=== PATIENT | male | born 1955 | race Caucasian/White ===

== ENCOUNTER → 2023-04-15 15:11 | Outpatient (BNVA) | payer MEDICARE, SELFPAY | PROVIDERS: Visit Provider Family Medicine | DX: E03.9 Hypothyroidism, unspecified (principal); I10 Essential (primary) hypertension; M54.42 Lumbago with sciatica, left side; M54.41 Lumbago with sciatica, right side; G89.29 Other chronic pain; E87.70 Fluid overload, unspecified; E78.2 Mixed hyperlipidemia; N52.8 Other male erectile dysfunction; K21.9 Gastro-esophageal reflux disease without esophagitis; M75.01 Adhesive capsulitis of right shoulder | CPT/HCPCS: 73030; 80053; 80061; 84439; 84443; 85025 ==

== ENCOUNTER 2023-08-26 10:50 | Outpatient (CLI) | payer MEDICARE, SELFPAY ==
--- NOTE | 2023-08-26 11:00 | MR_ITS ---
WS: [id number] MRI RIGHT SHOULDER HISTORY: shoulder pain COMPARISON: Radiographs 07/22/2023 TECHNIQUE: Multiplanar sequences of the shoulder joint are submitted. Moderate AC joint arthritis. Narrowing of the AC joint with osteophyte encroachment upon the myotendi nous portion of the supraspinatus. Small amount of fluid in the subacromial and subdeltoid bursa. No os acromion. Biceps tendon in normal position. Mild subacromial impingement. Moderate narrowing of the glenohumeral joint. Slightly high riding humeral head. Mild diffuse loss of cartilage is surrounding the humeral head and glenoid. No fractures and no marrow edema. There is very mild atrophy of the supraspinatus muscle. Focal insertion site tear supraspinatus tendo n, the anterior most aspect of the tendon measures 9 mm. No retraction of the tendon. Moderate narrow ing of the coracohumeral interval by osteophyte disease from the coracoid process. No additional tend on tears. Mild degenerative changes involving the labrum. The labrum is poorly visualized due to the amount of motion. Cannot confirm a labral tear. MR/MR shoulder RT wo con* [id number] IMPRESSION: 1. Moderate AC joint arthritis with osteophyte encroachment upon the myotendin ous region of the supraspinatus. 2. Insertion site tear anterior most supraspinatus tendon. 3. Very mild supraspinatus muscle atrophy. 4. Moderate narrowing coracohumeral interval. 5. Mild subacromial impingement.
== END 2023-08-26 10:51 | disposition home or self-care (01) ==
PROVIDERS: PCP Family Medicine; Visit Provider Specialist
DX: M75.01 Adhesive capsulitis of right shoulder (principal)
CPT/HCPCS: 73221

== ENCOUNTER → 2023-09-21 15:25 | Outpatient (BNVA) | payer MEDICARE, SELFPAY | PROVIDERS: PCP Family Medicine; Visit Provider Specialist | DX: Z09 Encounter for follow-up examination after completed treatment for conditions other than malignant neoplasm (principal); M75.01 Adhesive capsulitis of right shoulder | CPT/HCPCS: 20610; 99204; J1100; J2795; J3301 ==

== ENCOUNTER → 2023-10-28 09:53 | Outpatient (BNVA) | payer MEDICARE, SELFPAY | PROVIDERS: PCP Family Medicine; Referring Provider Family Medicine; Visit Provider Nurse Practitioner Family | DX: D48.5 Neoplasm of uncertain behavior of skin (principal); L82.1 Other seborrheic keratosis; L57.0 Actinic keratosis; L57.8 Other skin changes due to chronic exposure to nonionizing radiation; D22.5 Melanocytic nevi of trunk | CPT/HCPCS: 11104; 17000; 99203 ==

== ENCOUNTER → 2023-11-09 14:26 | Outpatient (BNVA) | payer MEDICARE, SELFPAY | PROVIDERS: PCP Family Medicine; Visit Provider Nurse Practitioner Family | DX: L82.1 Other seborrheic keratosis (principal); L57.8 Other skin changes due to chronic exposure to nonionizing radiation; D22.5 Melanocytic nevi of trunk; L44.8 Other specified papulosquamous disorders; L57.0 Actinic keratosis | CPT/HCPCS: 99213 ==

== ENCOUNTER 2023-12-07 12:58 | Emergency (ER) | payer MEDICARE, SELFPAY ==
[2023-12-07 13:06] VITALS: BP 152/78; PULSE 76; RESP 18; TEMP 36.4; O2SAT 96; BMI 27.8
[2023-12-07 13:45] LABS: Basophils # 0.1 10^3/uL (0.0-0.1); Basophils % 1.1 %; Eosinophils # 0.1 10^3/uL (0.0-0.8); Hematocrit 48.4 % (37-53); Lymphocytes # 1.8 10^3/uL (0.8-4.8); Lymphocytes % 28.5 %; Mean Corpuscular HGB Conc 33.7 g/dL (30-55); Mean Corpuscular Hemoglobin 31.8 pg (27-33); Mean Corpuscular Volume 94.5 fl (82-101); Mean Platelet Volume 9.8 fL (7.4-10.4); Monocytes # 0.5 10^3/uL (0.2-0.9); Monocytes % 8.4 %; Neutrophils # 3.86 10^3/uL (1.8-7.7); Neutrophils % 59.8 %; Nucleated Red Blood Cells % 0 %; Platelet Count 246 10^3/cmm (157-399); Red Blood Count 5.12 10^6/uL (3.85-5.65); Red Cell Distribution Width 12.6 % (12.1-15.1); White Blood Count 6.45 10^3/uL (3.29-11.43)
[2023-12-07 14:02] LABS: Lactic Sepsis W/Reflex 1.3 mmol/L (0.5-2.2)
[2023-12-07 14:03] LABS: Alanine Aminotransferase 16 U/L (0-41); Albumin Level 4.4 g/dL (3.5-5.2); Alkaline Phosphatase 81 U/L (40-130); Aspartate Amino Transferase 15 U/L (0-40); Blood Urea Nitrogen 14 mg/dL (8-23); Calcium 8.9 mg/dL (8.5-10.5); Carbon Dioxide 24 mmol/L (22-29); Chloride 105 mmol/L (98-107); Globulin 2.7 g/dL (1.3-4.6); Glucose 95 mg/dL (65-115); Lipase 15 U/L (13-60); Osmolality Calculated 290 mOsm/kg (285-295); Sodium 140 mmol/L (136-145); Total Bilirubin 0.8 mg/dL (0.15-1.2); Total Protein 7.1 g/dL (6.6-8.7)
--- NOTE | 2023-12-07 15:53 | XRR_ITS ---
PROCEDURE INFORMATION: Exam: XR Abdomen Exam date and time: 12/07/2023 4:03 PM Age: 68 years old Clinical indication: Constipation; Prior surgery; Surgery date: 6+ months; Surgery type: Partial RT colectomy; Additional info: Constipation, HX of partial R colectomy TECHNIQUE: Imaging protocol: Radiologic exam of the abdomen. Views: 2 Views. Upright and supine views. COMPARISON: CR XR lumbar spine 2-3V* [id number] 06/22/2023 2:29 PM FINDINGS: Gastrointestinal tract: Nonspecific bowel gas pattern, without significant bowel dilatation or distension. Predominance of gas and stool within the colon, with moderate stool volume. Intraperitoneal space: No indication of free air. Vasculature: Suggestion of several pelvic phleboliths. Bones/joints: Postsurgical hardware L4-L5 level of prior fusion. Other findings: Psoas margins appear distinct. XR/XR abdomen min 2V [id number] IMPRESSION: Nonspecific nonobstructive bowel gas pattern. Moderate stool volume in the colon.
--- NOTE | 2023-12-07 15:53 | W.ED.ABDPA2 ---
HPI - Abdominal Pain General: Chief Complaint: Abdominal Pain Stated Complaint: no bm movement, sick, n,v Time Seen by Provider: 12/07/23 15:34 Source: patient and family Mode of arrival: ambulatory Limitations: no limitations History of Present Illness: Patient is a 68-year-old male who presents to ED today along with his for evaluation of constipation over the past few weeks. Patient states he chronically takes opiates for chronic lower back pain. He states normally he can alleviate constipation with nfxf-psw-[id number] laxatives and stool softeners. He states he has been taking these at home without much relief. He states he will have watery bowel movements but at the end of it will have stool that is gooey . He states he is not really having any pain. Possibly some intermittent cramping. He does have a known large abdominal hernia that he has had for several years that does not cause him any problems. He has not had any vomiting over the course of the last few weeks apart from one time after taking a probiotic. Patient states he is up-to-date on colonoscopy. MD elicited complaint: abdominal pain Onset (ago): day(s) Location: None Radiation: none Migration to: no migration Exacerbating factors: nothing Relieving factors: nothing Associated Symptoms: Reports constipation; Denies chills, GI cramping, dysuria, fever(s), hematochezia, hematemesis, melena and vomiting (one time after taking probiotics) Related Data Previous Rx's Medication Instructions Recorded naloxone 4 mg/actuation nasal 4 mg intranasal Q3M PRN opioid 04/15/23 spray (Narcan) overdose #2 ea oxycodone 10 mg tablet 10 mg PO Q4H PRN lower back pain 06/12/23 30 days #180 tabs diazepam 5 mg tablet 5 mg PO BID PRN anxiety #60 tabs 09/15/23 duloxetine 30 mg capsule,delayed 30 mg PO BID #90 caps 09/15/23 release gabapentin 300 mg capsule 300 mg PO DAILY #90 caps 09/15/23 lisinopril 40 mg tablet 40 mg PO DAILY #90 tabs 09/15/23 omeprazole 20 mg capsule,delayed 20 mg PO DAILY #90 caps 09/15/23 release sildenafil 100 mg tablet 100 mg PO DAILY PRN sexual 09/15/23 activity #30 tabs atorvastatin 40 mg tablet 40 mg PO DAILY #90 tabs 09/16/23 furosemide 40 mg tablet 40 mg PO QAM #60 tabs 09/16/23 levothyroxine 25 mcg capsule 25 mcg PO DAILY #90 caps 09/16/23 potassium chloride 20 mEq 20 meq PO DAILY #30 tabs 11/19/23 tablet,extended release Allergies Allergy/AdvReac Type Severity Reaction Status Date / Time naproxen Allergy Mild Swell Verified 12/07/23 13:11 Review of Systems Const: Denies: fever(s), chills, body aches, fatigue or malaise Card: Denies: chest pain Resp: Denies: dyspnea GI: Reports: abdominal pain and constipation; Denies: vomiting (one time after taking probiotics), hematemesis, GI cramping, rectal pain, hematochezia or melena : Denies: flank pain or dysuria Musc: Denies: neck pain, back pain, extremity pain, joint pain or joint swelling Skin/Breast: Denies: rash Neuro: Denies: headache(s) or dizziness PFSH ED PFSH: Medical History GERD (gastroesophageal reflux disease) Anxiety Hyperlipidemia Erectile dysfunction Chronic back pain Hypothyroidism Arthritis Fatty liver Hypertension Surgical History History of back surgery Family History Father Cancer Lung Mother Alzheimer's dementia Social History Smoking and tobacco/nicotine status: former use of tobacco/nicotine Quit status (tobacco/nicotine): has tried quititng Alcohol intake: current Alcohol intake frequency: few times a month Alcohol type: hard liquor Substance/Drug Use: never Adopted: No Caregiver/support person: No Lives independently: Yes Household members: spouse service: No Current occupational status: retired and disabled Current occupational exposures/hazards: Yes Current gender identity: Male Physical Exam Const: COMMON NORMALS: no acute distress, average body habitus, patient oriented x3, no limitations, healthy appearing, alert and well nourished GENERAL APPEARANCE: cooperative ORIENTATION/CONSCIOUSNESS: Yes awake, Yes oriented to person, Yes oriented to place and Yes oriented to time Eye: COMMON NORMALS: no scleral icterus Resp: COMMON NORMALS: normal respiratory effort and clear to auscultation bilaterally AUSCULTATION: clear to auscultation bilaterally Cardio: COMMON NORMALS: regular rate and regular rhythm RATE: regular rate RHYTHM: regular rhythm GI: COMMON NORMALS: Normal to inspection, nondistended, normoactive bowel sounds present, Soft to palpation, non-tender, No hepatosplenomegaly present and no masses PALPATION: Yes Soft to palpation and Yes No hepatosplenomegaly present : COMMON NORMALS: Yes no CVA tenderness BLADDER/KIDNEY EXAM: Yes no CVA tenderness Back/Pelvis: COMMON NORMALS: no CVA tenderness Extremity: GENERAL: Yes normal exam except as noted Neuro: COMMON NORMALS: patient oriented x3 SENSORIUM/ORIENTATION: Yes alert, Yes oriented to person, Yes oriented to place and Yes oriented to time Course Vital Signs: Vital signs: Vital Signs Temperature 97.6 F 12/07/23 13:06 Pulse Rate 76 12/07/23 13:06 Respiratory Rate 18 12/07/23 13:06 Blood Pressure 152/78 12/07/23 13:06 Pulse Oximetry 96 12/07/23 13:06 Oxygen Delivery Me thod Room Air 12/07/23 13:06 MDM - Abdominal Pain Medical Decision Making Patient clinically appears in no acute distress. His vital signs are stable. Blood work is unremarkable. He has no abdominal pain. This abdominal XR showing nonobstructive bowel gas pattern. He does have moderate stool volume. Patient was given a mixture of medications to take when he gets home to help with constipation. We discussed multiple zeuc-vwz-jlsfjqw options for constipation relief including suppositories/enemas. He can follow-up with primary care in 1 to 2 weeks if symptoms do not seem to improve. Return to ED precautions given. Medical Records I reviewed the patient's medical records. Lab Data I reviewed the patient's lab results. 12/07/23 13:30 12/07/23 13:30 Labs/Radiology: Radiology Impressions Abdomen X-Ray 12/07/23 15:53 IMPRESSION: Nonspecific nonobstructive bowel gas pattern. Moderate stool volume in the colon. Laboratory Results WBC 6.45 10^3/uL (3.29-11.43) 12/07/23 13:30 RBC 5.12 10^6/uL (3.85-5.65) 12/07/23 13:30 Hgb 16.30 g/dL (11.27-16.99) 12/07/23 13:30 Hct 48.4 % (37-53) 12/07/23 13:30 MCV 94.5 fl (82-101) 12/07/23 13:30 MCH 31.8 pg (27-33) 12/07/23 13:30 MCHC 33.7 g/dL (30-55) 12/07/23 13:30 RDW 12.6 % (12.1-15.1) 12/07/23 13:30 Plt Count 246 10^3/cmm (157-399) 12/07/23 13:30 MPV 9.8 fL (7.4-10.4) 12/07/23 13:30 Neut % (Auto) 59.8 % 12/07/23 13:30 Lymph % (Auto) 28.5 % 12/07/23 13:30 [place] % (Auto) 8.4 % 12/07/23 13:30 Eos % (Auto) 2.0 % 12/07/23 13:30 Baso % (Auto) 1.1 % 12/07/23 13:30 Neut # (Auto) 3.86 10^3/uL (1.8-7.7) 12/07/23 13:30 Lymph # (Auto) 1.8 10^3/uL (0.8-4.8) 12/07/23 13:30 [place] # (Auto) 0.5 10^3/uL (0.2-0.9) 12/07/23 13:30 Eos # (Auto) 0.1 10^3/uL (0.0-0.8) 12/07/23 13:30 Baso # (Auto) 0.1 10^3/uL (0.0-0.1) 12/07/23 13:30 Nucleated RBC % (auto) 0 % 12/07/23 13:30 Nucleated RBCs # 0.0 /100WBC 12/07/23 13:30 Sodium 140 mmol/L (136-145) 12/07/23 13:30 Potassium 4.0 mmol/L (3.5-5.1) 12/07/23 13:30 Chloride 105 mmol/L (98-107) 12/07/23 13:30 Carbon Dioxide 24 mmol/L (22-29) 12/07/23 13:30 Anion Gap 15.0 (5-19) 12/07/23 13:30 BUN 14 mg/dL (8-23) 12/07/23 13:30 Creatinine 0.6 mg/dL (0.7-1.2) L 12/07/23 13:30 GFR Calculation 134.0 mL/min (90-130) H 12/07/23 13:30 Glucose 95 mg/dL (65-115) 12/07/23 13:30 Calculated Osmolality 290 mOsm/kg (285-295) 12/07/23 13:30 Lactic Acid 1.3 mmol/L (0.5-2.2) 12/07/23 13:30 Calcium 8.9 mg/dL (8.5-10.5) 12/07/23 13:30 Total Bilirubin 0.8 mg/dL (0.15-1.2) 12/07/23 13:30 AST 15 U/L (0-40) 12/07/23 13:30 ALT 16 U/L (0-41) 12/07/23 13:30 Alkaline Phosphatase 81 U/L (40-130) 12/07/23 13:30 Total Protein 7.1 g/dL (6.6-8.7) 12/07/23 13:30 Albumin 4.4 g/dL (3.5-5.2) 12/07/23 13:30 Globulin 2.7 g/dL (1.3-4.6) 12/07/23 13:30 Lipase 15 U/L (13-60) 12/07/23 13:30 All radiology interpretation(s) finalized by discharge Discharge Plan Discharge Patient Disposition: Home Clinical Impression: Constipation Qualifiers: Constipation type: unspecified constipation type Qualified Code(s): K59.00 - Constipation, unspecified Condition: Stable Prescriptions: No Action diazepam 5 mg tablet 5 mg PO BID PRN (Reason: anxiety) Qty: 60 0RF lisinopril 40 mg tablet 40 mg PO DAILY Qty: 90 1RF omeprazole 20 mg capsule,delayed release(DR/EC) 20 mg PO DAILY Qty: 90 1RF sildenafil 100 mg tablet 100 mg PO DAILY PRN (Reason: sexual activity) Qty: 30 1RF Rx Instructions: administer 30 minutes to 4 hours before activity duloxetine 30 mg capsule,delayed release(DR/EC) 30 mg PO BID Qty: 90 1RF gabapentin 300 mg capsule 300 mg PO DAILY Qty: 90 1RF naloxone [Narcan] 4 mg/actuation spray,non-aerosol 4 mg intranasal Q3M PRN (Reason: opioid overdose) Qty: 2 0RF Rx Instructions: spray 1 dose into ONE nostril; alternate nostrils w each dose until help arrives oxycodone 10 mg tablet 10 mg PO Q4H PRN (Reason: lower back pain) 30 Days Qty: 180 0RF furosemide 40 mg tablet 40 mg PO QAM Qty: 60 1RF atorvastatin 40 mg tablet 40 mg PO DAILY Qty: 90 1RF levothyroxine 25 mcg capsule 25 mcg PO DAILY Qty: 90 1RF potassium chloride 20 mEq tablet extended release 20 meq PO DAILY Qty: 30 0RF Discharge Orders: Discharge ED (Routine); Ordered 12/07/23 Ordered By: Dawna Bird Referrals: Hiren Holloway MD [Primary Care Provider] - Patient Instructions: Constipation (DC), Fleet Enema (ED) Activity Restrictions/Additional Instructions: As we discussed, you have been given a mixture to go home with that you may use to help alleviate constipation. You will require additional medications to use over the next week or so. We discussed these iryz-vdh-xzxlbea options such as mag citrate, milk of magnesia, colace/docusate sodium, Senokot, and MiraLAX. You may also require the administration of an enema or suppository as well. These are available [id number]. You may follow-up with your primary care provider in 1 to 2 weeks if symptoms do not seem to improve. Return to the emergency department for onset of severe abdominal pain, fevers, repetitive episodes of vomiting, generally feeling worse or unwell, or any other concerns you may have. Coding Level of Care Code ED [employer] Team Member for Josette Patel
[2023-12-07] MEDS: magnesium hydroxide 30 mL UDC PO (17:04)
[2023-12-07] MEDS: lactulose oral liq 20 gm/30 mL UDC 30 GM PO (17:04)
[2023-12-07] MEDS: mineral oil 30 mL UDC PO (17:04)
[2023-12-07 17:12] VITALS: BP 148/82; PULSE 74; RESP 16; O2SAT 97
== END 2023-12-07 17:07 | disposition home or self-care (01) ==
PROVIDERS: Emergency Provider Physician Assistant; PCP Family Medicine
DX: K59.00 Constipation, unspecified (principal); Z87.891 Personal history of nicotine dependence; E78.5 Hyperlipidemia, unspecified; I10 Essential (primary) hypertension
CPT/HCPCS: 36415; 74019; 80053; 83605; 83690; 85025; 99284

== ENCOUNTER 2024-01-29 05:26 | Inpatient (IN) | payer MEDICARE, SELFPAY ==
[2024-01-29] VITALS (17 sets, daily range): BP systolic 108–188; BP diastolic 70–104; PULSE 47–98; RESP 13–25; TEMP 35–38.1; O2SAT 86–99
--- NOTE | 2024-01-29 05:31 | ECG_ITS ---
[facility] Test Date: 2024-01-29 Pat Name: Garry Corley Department: Room: Gender: Male [employer] Helper: : 1955 Requested By: Radha Shirley Order Number: [id number] Ramos MD: Espinoza Pedroza M.D. Measurements Intervals [place] Rate: 54 P: 59 WV: 183 QRS: 38 QRSD: 94 T: 62 QT: 410 QTc: 391 Interpretive Statements SINUS BRADYCARDIA No previous ECG available for comparison Electronically Signed On 01-31-2024 18:54:28 DISPENSARY CLERK by Espinoza Pedroza M.D. [email or web address]
--- NOTE | 2024-01-29 05:31 | W.ED.CHESTPA ---
Documented by User: Radha Rahman MD 01/29/24 05:34 HPI - Chest Pain General: Chief Complaint: Chest Pain Stated Complaint: chest pain Time Seen by Provider: 01/29/24 05:30 History of Present Illness: 68-year-old man with history of hypertension and tobacco dependence who presents the emergency room with chest pain. He had been having indigestion symptoms most of the day yesterday. He had taken a whole bunch of Pepto-Bismol. He called ambulance because of [facility] and they initially came out and said that whenever he got up to go to the ambulance that had gone away so he stayed. But then it came back and now has a pressure in his center of his chest. He is had some nausea. No vomiting. No cough. No shortness of breath. No abdominal pain. No history of any cardiac issues in the past. Related Data Previous Rx's Medication Instructions Recorded naloxone 4 mg/actuation nasal 4 mg intranasal Q3M PRN opioid 04/15/23 spray (Narcan) overdose #2 ea oxycodone 10 mg tablet 10 mg PO Q4H PRN lower back pain 06/12/23 30 days #180 tabs potassium chloride 20 mEq 20 meq PO DAILY #30 tabs 11/19/23 tablet,extended release atorvastatin 40 mg tablet 40 mg PO DAILY #90 tabs 01/24/24 diazepam 5 mg tablet 5 mg PO BID PRN anxiety #60 tabs 01/24/24 levothyroxine 25 mcg capsule 25 mcg PO DAILY #90 caps 01/24/24 lisinopril 40 mg tablet 40 mg PO DAILY #90 tabs 01/24/24 omeprazole 20 mg capsule,delayed 20 mg PO DAILY #90 caps 01/24/24 release sildenafil 100 mg tablet 100 mg PO DAILY PRN sexual 01/24/24 activity #30 tabs Allergies Allergy/AdvReac Type Severity Reaction Status Date / Time naproxen Allergy Mild Swell Verified 12/15/23 11:14 Review of Systems Narrative: Constitutional symptoms: Negative except as documented in HPI. Skin symptoms: Negative except as documented in HPI. Eye symptoms: Negative except as documented in HPI. ENMT symptoms: Negative except as documented in HPI. Respiratory symptoms: Negative except as documented in HPI. Cardiovascular symptoms: Negative except as documented in HPI. Gastrointestinal symptoms: Negative except as documented in HPI. Genitourinary symptoms: Negative except as documented in HPI. Musculoskeletal symptoms: Negative except as documented in HPI. Neurologic symptoms: Negative except as documented in HPI. Psychiatric symptoms: Negative except as documented in HPI. Endocrine symptoms: Negative except as documented in HPI. PFSH ED PFSH: Medical History GERD (gastroesophageal reflux disease) Anxiety Hyperlipidemia Erectile dysfunction Chronic back pain Hypothyroidism Arthritis Fatty liver Hypertension Surgical History History of back surgery Family History Father Cancer Lung Mother Alzheimer's dementia Social History Smoking and tobacco/nicotine status: former use of tobacco/nicotine Quit status (tobacco/nicotine): has tried quititng Alcohol intake: current Alcohol intake frequency: few times a month Alcohol type: hard liquor Substance/Drug Use: never Adopted: No Caregiver/support person: No Lives independently: Yes Household members: spouse service: No Current occupational status: retired and disabled Current occupational exposures/hazards: Yes Current gender identity: Male Physical Exam Narrative: EXAM NARRATIVE: General: Alert, no acute distress. Skin: Warm, dry. Head: Normocephalic, atraumatic. Neck: Supple, trachea midline. Eye: Extraocular movements are intact. Ears, nose, mouth and throat: mucosa moist. Cardiovascular: Regular, Normal peripheral perfusion. Respiratory: Lungs are clear to auscultation, respirations are non-labored, breath sounds are equal, Symmetrical chest wall expansion. Gastrointestinal: Soft, Nontender, Non distended Musculoskeletal: Normal ROM, no deformity. Neurological: Alert and oriented, No focal neurological deficit observed. Psychiatric: Cooperative, appropriate mood & affect. Course Vital Signs: Vital signs: Vital Signs Temperature 97.5 F L 01/29/24 12:13 Pulse Rate 61 01/29/24 12:27 Respiratory Rate 19 H 01/29/24 12:13 Blood Pressure 142/70 01/29/24 12:13 Pulse Oximetry 92 01/29/24 14:46 Oxygen Delivery Me thod Room Air 01/29/24 14:46 Oxygen Flow Rate 2 01/29/24 12:27 MDM - Chest Pain Medical Decision Making EKG: Time 5:31 AM. Rate 54. Sinus bradycardia, No ST-T changes, no ectopy, normal IN & QRS intervals, This was reviewed and interpreted by myself the ER physician at 5:33 AM. Patient care transitioned to Dr. Bauer at shift change. Lab Data 01/29/24 05:52 01/29/24 05:52 Radiology Impressions Chest X-Ray 01/29/24 06:03 IMPRESSION: No acute findings. Chest CTA 01/29/24 06:34 IMPRESSION: 1. No acute findings. 2. No dissection or aneurysm. Abdomen/Pelvis CT 01/29/24 08:34 IMPRESSION: 1. Cholelithiasis with a slightly hydropic gallbladder. There is no adjacent inflammation or wall thickening. Normal common bile duct. 2. No renal obstruction. Mild bilateral perinephric stranding may be chronic. 3. Distal colonic diverticulosis without acute diverticulitis. 4. Atherosclerosis aorta. 5. Normal appendix. Laboratory Results WBC 8.62 10^3/uL (3.29-11.43) 01/29/24 05:52 RBC 4.74 10^6/uL (3.85-5.65) 01/29/24 05:52 Hgb 15.00 g/dL (11.27-16.99) 01/29/24 05:52 Hct 45.1 % (37-53) 01/29/24 05:52 MCV 95.1 fl (82-101) 01/29/24 05:52 MCH 31.6 pg (27-33) 01/29/24 05:52 MCHC 33.3 g/dL (30-55) 01/29/24 05:52 RDW 12.5 % (12.1-15.1) 01/29/24 05:52 Plt Count 275 10^3/cmm (157-399) 01/29/24 05:52 MPV 9.6 fL (7.4-10.4) 01/29/24 05:52 Neut % (Auto) 62.8 % 01/29/24 05:52 Lymph % (Auto) 23.5 % 01/29/24 05:52 [place] % (Auto) 8.8 % 01/29/24 05:52 Eos % (Auto) 3.4 % 01/29/24 05:52 Baso % (Auto) 1.3 % 01/29/24 05:52 Neut # (Auto) 5.41 10^3/uL (1.8-7.7) 01/29/24 05:52 Lymph # (Auto) 2.0 10^3/uL (0.8-4.8) 01/29/24 05:52 [place] # (Auto) 0.8 10^3/uL (0.2-0.9) 01/29/24 05:52 Eos # (Auto) 0.3 10^3/uL (0.0-0.8) 01/29/24 05:52 Baso # (Auto) 0.1 10^3/uL (0.0-0.1) 01/29/24 05:52 Nucleated RBC % (auto) 0 % 01/29/24 05:52 Nucleated RBCs # 0.0 /100WBC 01/29/24 05:52 Sodium 142 mmol/L (136-145) 01/29/24 05:52 Potassium 4.0 mmol/L (3.5-5.1) 01/29/24 05:52 Chloride 106 mmol/L (98-107) 01/29/24 05:52 Carbon Dioxide 26 mmol/L (22-29) 01/29/24 05:52 Anion Gap 14.0 (5-19) 01/29/24 05:52 BUN 14 mg/dL (8-23) 01/29/24 05:52 Creatinine 0.7 mg/dL (0.7-1.2) 01/29/24 05:52 GFR Calculation 112.1 mL/min (90-130) 01/29/24 05:52 Glucose 112 mg/dL (65-115) 01/29/24 05:52 Calculated Osmolality 295 mOsm/kg (285-295) 01/29/24 05:52 Lactic Acid 2.5 mmol/L (0.5-2.2) H 01/29/24 05:52 Lactic Acid (Sepsis) 1.6 mmol/L (0.5-2.2) 01/29/24 09:15 Calcium 8.8 mg/dL (8.5-10.5) 01/29/24 05:52 Total Bilirubin 0.3 mg/dL (0.15-1.2) 01/29/24 05:52 AST 15 U/L (0-40) 01/29/24 05:52 ALT 21 U/L (0-41) 01/29/24 05:52 Alkaline Phosphatase 70 U/L (40-130) 01/29/24 05:52 Troponin T Baseline 9 ng/L (0-15) 01/29/24 05:52 Troponin T 120 Minute 6.00 ng/L (0-15) 01/29/24 08:22 Delta Troponin T -3.00 ABS# (0-10) L 01/29/24 08:22 Total Protein 5.7 g/dL (6.6-8.7) L 01/29/24 05:52 Albumin 4.0 g/dL (3.5-5.2) 01/29/24 05:52 Globulin 1.7 g/dL (1.3-4.6) 01/29/24 05:52 Lipase 16 U/L (13-60) 01/29/24 05:52 Urine Color Dark yellow (Yellow) A 01/29/24 06:19 Urine Appearance Clear (CLEAR) 01/29/24 06:19 Urine pH 5.5 (5-7) 01/29/24 06:19 Ur Specific [place] 1.035 (1.005-1.030) H 01/29/24 06:19 Urine Protein Trace (Negative) A 01/29/24 06:19 Urine Glucose (UA) Negative (Normal) 01/29/24 06:19 Urine Ketones Negative (Negative) 01/29/24 06:19 Urine Blood Negative (Negative) 01/29/24 06:19 Urine Nitrate Negative (Negative) 01/29/24 06:19 Urine Bilirubin Negative (Negative) 01/29/24 06:19 Urine Urobilinogen 1.0 mg/dL (Negative) 01/29/24 06:19 Ur Leukocyte Esterase Negative (Negative) 01/29/24 06:19 Urine RBC 3-5 /hpf (0-2) 01/29/24 06:19 Urine WBC 0-5 /hpf (0-5) 01/29/24 06:19 Ur Squamous Epith Cells 0-5 /hpf (0-5) 01/29/24 06:19 Amorphous Sediment Not Reportable 01/29/24 06:19 Urine Bacteria None seen /hpf (NONE) 01/29/24 06:19 Hyaline Casts 5.36 /lpf 01/29/24 06:19 Blood Type A Positive 01/29/24 06:52 Rho(D) Type Rh positive 01/29/24 06:52 Antibody Screen Positive 01/29/24 06:52 Antibody Identification Anti-K 01/29/24 06:52 Antigen Identification K Antigen - NEGATIVE 01/29/24 06:52 Crossmatch See Detail 01/29/24 06:52 Discharge Plan Discharge Patient Disposition: Placed in Observation Admit Provider: Maribell Osborn Clinical Impression: Atypical chest pain, Accelerated hypertension Sign Out Sign Out Data: Patient Sign Out occurred on 01/29/24 at 05:48. Patient's care was discussed, and care was transferred from Radha Rahman MD to Damon Bauer DO. Coding Level of Care Code ED Photoengraving Proofer for Chg Fwd Documented by User: Damon Bauer DO 01/29/24 15:14 HPI - Chest Pain General: Chief Complaint: Chest Pain Stated Complaint: chest pain Time Seen by Provider: 01/29/24 05:30 Related Data Previous Rx's Medication Instructions Recorded naloxone 4 mg/actuation nasal 4 mg intranasal Q3M PRN opioid 04/15/23 spray (Narcan) overdose #2 ea oxycodone 10 mg tablet 10 mg PO Q4H PRN lower back pain 06/12/23 30 days #180 tabs potassium chloride 20 mEq 20 meq PO DAILY #30 tabs 11/19/23 tablet,extended release atorvastatin 40 mg tablet 40 mg PO DAILY #90 tabs 01/24/24 diazepam 5 mg tablet 5 mg PO BID PRN anxiety #60 tabs 01/24/24 levothyroxine 25 mcg capsule 25 mcg PO DAILY #90 caps 01/24/24 lisinopril 40 mg tablet 40 mg PO DAILY #90 tabs 01/24/24 omeprazole 20 mg capsule,delayed 20 mg PO DAILY #90 caps 01/24/24 release sildenafil 100 mg tablet 100 mg PO DAILY PRN sexual 01/24/24 activity #30 tabs Allergies Allergy/AdvReac Type Severity Reaction Status Date / Time naproxen Allergy Mild Swell Verified 12/15/23 11:14 [facility] ED PFSH: Medical History GERD (gastroesophageal reflux disease) Anxiety Hyperlipidemia Erectile dysfunction Chronic back pain Hypothyroidism Arthritis Fatty liver Hypertension Surgical History History of back surgery Family History Father Cancer Lung Mother Alzheimer's dementia Social History Smoking and tobacco/nicotine status: former use of tobacco/nicotine Quit status (tobacco/nicotine): has tried quititng Alcohol intake: current Alcohol intake frequency: few times a month Alcohol type: hard liquor Substance/Drug Use: never Adopted: No Caregiver/support person: No Lives independently: Yes Household members: spouse service: No Current occupational status: retired and disabled Current occupational exposures/hazards: Yes Current gender identity: Male Course Vital Signs: Vital signs: Vital Signs Temperature 97.5 F L 01/29/24 12:13 Pulse Rate 61 01/29/24 12:27 Respiratory Rate 19 H 01/29/24 12:13 Blood Pressure 142/70 01/29/24 12:13 Pulse Oximetry 92 01/29/24 14:46 Oxygen Delivery Me thod Room Air 01/29/24 14:46 Oxygen Flow Rate 2 01/29/24 12:27 MDM - Chest Pain Medical Decision Making EKG: Time 5:31 AM. Rate 54. Sinus bradycardia, No ST-T changes, no ectopy, normal IN & QRS intervals, This was reviewed and interpreted by myself the ER physician at 5:33 AM. Patient care transitioned to Dr. Bauer at shift change. Blood pressure remains elevated patient continues to have chest pain. Patient was given morphine all started on nitroglycerin. Cardiac enzymes negative EKG does not show any acute changes but he continues to have chest pain. The right side of his mediastinum appears slightly widened CTA of the chest did not show PE or thoracic aneurysm. Will admit to complete to rule out for acute coronary syndrome additionally we had given him vasa reticulocyte he is bradycardic while he was here at times going down into the 40s did not want to give him any labetalol given 5 of hydralazine as well as vasa reticulocyte he did not have much response to this he was then started on nicardipine. Discussed with hospitalist will admit orders written Lab Data 01/29/24 05:52 01/29/24 05:52 Radiology Impressions Chest X-Ray 01/29/24 06:03 IMPRESSION: No acute findings. Chest CTA 01/29/24 06:34 IMPRESSION: 1. No acute findings. 2. No dissection or aneurysm. Abdomen/Pelvis CT 01/29/24 08:34 IMPRESSION: 1. Cholelithiasis with a slightly hydropic gallbladder. There is no adjacent inflammation or wall thickening. Normal common bile duct. 2. No renal obstruction. Mild bilateral perinephric stranding may be chronic. 3. Distal colonic diverticulosis without acute diverticulitis. 4. Atherosclerosis aorta. 5. Normal appendix. Laboratory Results WBC 8.62 10^3/uL (3.29-11.43) 01/29/24 05:52 RBC 4.74 10^6/uL (3.85-5.65) 01/29/24 05:52 Hgb 15.00 g/dL (11.27-16.99) 01/29/24 05:52 Hct 45.1 % (37-53) 01/29/24 05:52 MCV 95.1 fl (82-101) 01/29/24 05:52 MCH 31.6 pg (27-33) 01/29/24 05:52 MCHC 33.3 g/dL (30-55) 01/29/24 05:52 RDW 12.5 % (12.1-15.1) 01/29/24 05:52 Plt Count 275 10^3/cmm (157-399) 01/29/24 05:52 MPV 9.6 fL (7.4-10.4) 01/29/24 05:52 Neut % (Auto) 62.8 % 01/29/24 05:52 Lymph % (Auto) 23.5 % 01/29/24 05:52 [place] % (Auto) 8.8 % 01/29/24 05:52 Eos % (Auto) 3.4 % 01/29/24 05:52 Baso % (Auto) 1.3 % 01/29/24 05:52 Neut # (Auto) 5.41 10^3/uL (1.8-7.7) 01/29/24 05:52 Lymph # (Auto) 2.0 10^3/uL (0.8-4.8) 01/29/24 05:52 [place] # (Auto) 0.8 10^3/uL (0.2-0.9) 01/29/24 05:52 Eos # (Auto) 0.3 10^3/uL (0.0-0.8) 01/29/24 05:52 Baso # (Auto) 0.1 10^3/uL (0.0-0.1) 01/29/24 05:52 Nucleated RBC % (auto) 0 % 01/29/24 05:52 Nucleated RBCs # 0.0 /100WBC 01/29/24 05:52 Sodium 142 mmol/L (136-145) 01/29/24 05:52 Potassium 4.0 mmol/L (3.5-5.1) 01/29/24 05:52 Chloride 106 mmol/L (98-107) 01/29/24 05:52 Carbon Dioxide 26 mmol/L (22-29) 01/29/24 05:52 Anion Gap 14.0 (5-19) 01/29/24 05:52 BUN 14 mg/dL (8-23) 01/29/24 05:52 Creatinine 0.7 mg/dL (0.7-1.2) 01/29/24 05:52 GFR Calculation 112.1 mL/min (90-130) 01/29/24 05:52 Glucose 112 mg/dL (65-115) 01/29/24 05:52 Calculated Osmolality 295 mOsm/kg (285-295) 01/29/24 05:52 Lactic Acid 2.5 mmol/L (0.5-2.2) H 01/29/24 05:52 Lactic Acid (Sepsis) 1.6 mmol/L (0.5-2.2) 01/29/24 09:15 Calcium 8.8 mg/dL (8.5-10.5) 01/29/24 05:52 Total Bilirubin 0.3 mg/dL (0.15-1.2) 01/29/24 05:52 AST 15 U/L (0-40) 01/29/24 05:52 ALT 21 U/L (0-41) 01/29/24 05:52 Alkaline Phosphatase 70 U/L (40-130) 01/29/24 05:52 Troponin T Baseline 9 ng/L (0-15) 01/29/24 05:52 Troponin T 120 Minute 6.00 ng/L (0-15) 01/29/24 08:22 Delta Troponin T -3.00 ABS# (0-10) L 01/29/24 08:22 Total Protein 5.7 g/dL (6.6-8.7) L 01/29/24 05:52 Albumin 4.0 g/dL (3.5-5.2) 01/29/24 05:52 Globulin 1.7 g/dL (1.3-4.6) 01/29/24 05:52 Lipase 16 U/L (13-60) 01/29/24 05:52 Urine Color Dark yellow (Yellow) A 01/29/24 06:19 Urine Appearance Clear (CLEAR) 01/29/24 06:19 Urine pH 5.5 (5-7) 01/29/24 06:19 Ur Specific [place] 1.035 (1.005-1.030) H 01/29/24 06:19 Urine Protein Trace (Negative) A 01/29/24 06:19 Urine Glucose (UA) Negative (Normal) 01/29/24 06:19 Urine Ketones Negative (Negative) 01/29/24 06:19 Urine Blood Negative (Negative) 01/29/24 06:19 Urine Nitrate Negative (Negative) 01/29/24 06:19 Urine Bilirubin Negative (Negative) 01/29/24 06:19 Urine Urobilinogen 1.0 mg/dL (Negative) 01/29/24 06:19 Ur Leukocyte Esterase Negative (Negative) 01/29/24 06:19 Urine RBC 3-5 /hpf (0-2) 01/29/24 06:19 Urine WBC 0-5 /hpf (0-5) 01/29/24 06:19 Ur Squamous Epith Cells 0-5 /hpf (0-5) 01/29/24 06:19 Amorphous Sediment Not Reportable 01/29/24 06:19 Urine Bacteria None seen /hpf (NONE) 01/29/24 06:19 Hyaline Casts 5.36 /lpf 01/29/24 06:19 Blood Type A Positive 01/29/24 06:52 Rho(D) Type Rh positive 01/29/24 06:52 Antibody Screen Positive 01/29/24 06:52 Antibody Identification Anti-K 01/29/24 06:52 Antigen Identification K Antigen - NEGATIVE 01/29/24 06:52 Crossmatch See Detail 01/29/24 06:52 All radiology interpretation(s) finalized by discharge Discharge Plan Discharge Patient Disposition: Placed in Observation Admit Provider: Maribell Osborn Clinical Impression: Atypical chest pain, Accelerated hypertension Sign Out Sign Out Data: Patient Sign Out occurred on 01/29/24 at 05:48. Patient's care was discussed, and care was transferred from Radha Rahman MD to Damon Bauer DO. Coding Level of Care Code ED Photoengraving Proofer for Josette Patel
--- NOTE | 2024-01-29 05:55 | ECG_ITS ---
[facility]: [facility]24[facility]01[facility]29 Pat Name: Garry Corley Department: Room: Gender: Male Lehr Tender: : 1955 Requested By: Damon Shirley Order Number: [id number] Richard MD: Espinoza Pedroza M.D. Measurements Intervals [place] Rate: 53 P: 56 MT: 182 QRS: 35 QRSD: 94 T: 60 QT: 434 QTc: 409 Interpretive Statements SINUS BRADYCARDIA Compared to ECG 01/29/2024 05:31:01 No significant changes Electronically Signed On 01-31-2024 18:54:25 PREPARATION ROOM WORKER by Espinoza Pedroza M.D. [id number]
[2024-01-29 05:56] LABS: Basophils # 0.1 10^3/uL (0.0-0.1); Basophils % 1.3 %; Eosinophils # 0.3 10^3/uL (0.0-0.8); Eosinophils % 3.4 %; Hematocrit 45.1 % (37-53); Lymphocytes % 23.5 %; Mean Corpuscular HGB Conc 33.3 g/dL (30-55); Mean Corpuscular Hemoglobin 31.6 pg (27-33); Mean Corpuscular Volume 95.1 fl (82-101); Mean Platelet Volume 9.6 fL (7.4-10.4); Monocytes # 0.8 10^3/uL (0.2-0.9); Monocytes % 8.8 %; Neutrophils # 5.41 10^3/uL (1.8-7.7); Neutrophils % 62.8 %; Nucleated Red Blood Cells % 0 %; Platelet Count 275 10^3/cmm (157-399); Red Blood Count 4.74 10^6/uL (3.85-5.65); Red Cell Distribution Width 12.5 % (12.1-15.1); White Blood Count 8.62 10^3/uL (3.29-11.43)
--- NOTE | 2024-01-29 06:03 | XRR_ITS ---
PROCEDURE INFORMATION: Exam: XR Chest Exam date and time: 01/29/2024 6:19 AM Age: 68 years old Clinical indication: Pain; Chest pressure; Additional info: Dyspnea/cough TECHNIQUE: Imaging protocol: Radiologic exam of the chest. Views: 1 view. COMPARISON: CR XR abdomen min 2V 00162 12/07/2023 4:03 PM FINDINGS: Lungs: Unremarkable. No consolidation. Pleural spaces: Unremarkable. No pleural effusion. No pneumothorax. Heart/Mediastinum: Unremarkable. No cardiomegaly. Bones/joints: Unremarkable. XR/XR chest 1V portable [id number] IMPRESSION: No acute findings.
[2024-01-29] MEDS: nitroglycerin 1 gm/inch oint Pkt 1 INCH TOPICAL (06:07)
[2024-01-29] MEDS: aspirin 81 mg Chew Tablet 324 MG PO (06:08)
[2024-01-29 06:12] LABS: Troponin(5th) Baseline 9 ng/L (0-15)
[2024-01-29 06:14] LABS: Lactic Sepsis W/Reflex 2.5 mmol/L (0.5-2.2)
[2024-01-29 06:15] LABS: Alanine Aminotransferase 21 U/L (0-41); Alkaline Phosphatase 70 U/L (40-130); Aspartate Amino Transferase 15 U/L (0-40); Blood Urea Nitrogen 14 mg/dL (8-23); Calcium 8.8 mg/dL (8.5-10.5); Carbon Dioxide 26 mmol/L (22-29); Chloride 106 mmol/L (98-107); Globulin 1.7 g/dL (1.3-4.6); Glomerular Filtration Rate 112.1 mL/min (90-130); Glucose 112 mg/dL (65-115); Lipase 16 U/L (13-60); Osmolality Calculated 295 mOsm/kg (285-295); Sodium 142 mmol/L (136-145); Total Bilirubin 0.3 mg/dL (0.15-1.2); Total Protein 5.7 g/dL (6.6-8.7)
[2024-01-29] MEDS: lidocaine 2% viscous 15 ML, aluminum-mag hydrox-simethicon 30 ML, sucralfate oral liq 1 GM PO (06:25)
[2024-01-29] MEDS: morphine 4 mg/mL SDV 1 mL 2 MG IVP ×4 (06:26→23:04)
--- NOTE | 2024-01-29 06:34 | CTR_ITS ---
PROCEDURE INFORMATION: Exam: CTA Chest With Contrast Exam date and time: 01/29/2024 6:57 AM Age: 68 years old Clinical indication: Pain; Angina pectoris; Additional info: Widened mediastienum - chest pain radiating to back TECHNIQUE: Imaging protocol: Computed tomographic angiography of the chest with contrast. Exam focused on the arteries. 3D rendering (Not supervised by radiologist): MIP and/or 3D reconstructed images were created by the technologist. Radiation optimization: All CT scans at this facility use at least one of these dose optimization techniques: automated exposure control; mA and/or kV adjustment per patient size (includes targeted exams where dose is matched to clinical indication); or iterative reconstruction. Contrast material: OMNI 350; Contrast volume: 100 ml; Contrast route: INTRAVENOUS (IV); COMPARISON: CR (CHEST, ) 01/29/2024 6:19 AM RADIATION DOSE METRICS: Total DLP (mGy-cm): 960.84 FINDINGS: Pulmonary arteries: Normal. No pulmonary emboli. Aorta: Two-vessel arch is a normal variant. Small amount of plaque innominate artery and proximal left subclavian artery. No dissection. Other arteries: Calcified atherosclerotic plaque noted. Lungs: Bibasilar atelectasis noted. Chronic pleural-parenchymal scarring lung apices noted. No infiltrate. Pleural spaces: See Lungs finding. Heart: Unremarkable. No cardiomegaly. No pericardial effusion. Coronary arteries: There is atherosclerotic calcification coronary arteries. Lymph nodes: Unremarkable. No enlarged lymph nodes. Gallbladder and biliary ducts: Gallstones are noted. Bones/joints: Unremarkable. No acute fracture. Soft tissues: Unremarkable. CT/CT angio chest [id number] IMPRESSION: 1. No acute findings. 2. No dissection or aneurysm.
[2024-01-29] MEDS: iohexol 350 mg/mL 500 mL Btl (per mL) IV (07:09)
[2024-01-29 07:15] LABS: Bilirubin Urine Negative (Negative); Blood Urine Negative (Negative); Glucose Urine UA Negative (Normal); Ketones Urine Negative (Negative); Leukocyte Esterase Urine Negative (Negative); Nitrate Urine Negative (Negative); Protein Urine Trace (Negative); Urine Appearance Clear (CLEAR); Urine Color Dark Yellow (Yellow); pH Urine 5.5 (5-7)
[2024-01-29 07:18] LABS: Bacteria Urine None Seen /hpf; Hyaline Casts Urine 5.36 /lpf; Squamous Epithelial Cell Urine 0-5 /hpf (0-5); WBC Urine 0-5 /hpf (0-5)
[2024-01-29 07:30] LABS: Specific Gravity, Urine 1.035 (1.005-1.030)
[2024-01-29] MEDS: oxyCODONE 5 mg IR Tab/Cap 10 MG PO (07:31)
[2024-01-29 07:42] LABS: Reflex Lactate Order REFLEX LACTIC ORDERD
--- NOTE | 2024-01-29 07:58 | ECG_ITS ---
[facility]24-[facility]29 Pat Name: Garry Corley Department: Room: Gender: Male Insurance Sales Executive: : 1955 Requested By: Radha Shirley Order Number: [id number] Ramos MD: Espinoza Pedroza M.D. Measurements Intervals [place] Rate: 44 P: 63 [place]: 184 QRS: 34 QRSD: 97 T: 60 QT: 454 QTc: 391 Interpretive Statements SINUS BRADYCARDIA Compared to ECG 01/29/2024 05:55:53 No significant changes Electronically Signed On 01-31-2024 19:11:02 TAPER OPERATOR by Espinoza Pedroza M.D. [id number]
[2024-01-29] MEDS: enalaprilat 2.5 mg/2 mL SDV 0.625 MG IVP (08:32)
[2024-01-29] MEDS: lisinopril 10 mg Tablet PO (08:33)
--- NOTE | 2024-01-29 08:34 | CT_ITS ---
WS: [id number] CT ABDOMEN AND PELVIS NONCONTRAST HISTORY: Abdominal pain TECHNIQUE: Imaging performed through the abdomen and pelvis. Coronal and sagittal reformats are submi tted. All CT scans at [facility] use at least one of these dose optimization techniques: auto mated exposure control; mA and/or kV adjustment per patient size (includes targeted exams where dose is matched to clinical indication); or iterative reconstruction. DLP: 945.31 mGy.cm COMPARISON: None available. Lower thorax: Dependent changes and emphysema at the lung bases. Heart is just slightly enlarged. Sma ll hiatal hernia. Liver: Normal size liver. No mass or bile duct dilatation. Gallbladder: Gallbladder is very slightly distended with stones. No adjacent inflammation. Wall does not appear to be thickened on this noncontrast exam. Common bile duct is normal size. Pancreas: Normal size and attenuation. Normal pancreatic duct. No pancreatitis or mass. Spleen: Normal. Adrenal glands: Normal. No mass. Right kidney: Contrast in the renal pelvis being excreted from the prior CT angiogram. There is very slight perinephric stranding around the kidney. Ureter is not dilated. No obstruction. Left kidney: Contrast in the renal pelvis and excretion due to the recent contrast exam. Mild perinep hric stranding. No obstruction. Normal size LEFT ureter. Aorta: Mild atherosclerotic plaque. No free fluid, intraperitoneal air or significant lymphadenopathy. GI tract: Minimally distended stomach. No small bowel obstruction. Appendix is normal. Mild RIGHT col onic constipation. Surgical anastomosis just distal to the hepatic flexure appears intact. There is n o complications. Increasing diverticular disease in the descending and sigmoid colon. No definite inf lammation. There is no obstructive pattern. Abdominal wall: Negative. No hernia. Pelvis: Urinary bladder is distended with excreted IV contrast. There is no free fluid or adenopathy in the pelvis. Mild prostate enlargement and heterogeneity. Patent RIGHT inguinal canal contains fat. Osseous structures: Prior lumbar fusion and interbody spacer at L4-5. LEFT hemilaminectomy defect at L4-5 CT/CT abdomen pelvis wo con [id number] IMPRESSION: 1. Cholelithiasis with a slightly hydropic gallbladder. There is no adjacent i nflammation or wall thickening. Normal common bile duct. 2. No renal obstruction. Mild bilateral perinephric stranding may be chronic. 3. Distal colonic diverticulosis without acute diverticulitis. 4. Atherosclerosis aorta. 5. Normal appendix.
[2024-01-29] MEDS: nicardipine 20 MG/200 ML PREMIX 50 MG IV (08:58)
[2024-01-29 09:52] LABS: Lactic Acid level (Lactate) 1.6 mmol/L (0.5-2.2)
--- NOTE | 2024-01-29 10:51 | PC.NURSE ---
Patient arrived to [facility] via stretcher. Patient complaints of chest and abd pain 10/10 pain scale. Physician notified orders as follows; 0.5mg IVP Dilaudid ONCE, Malox 30ml PO ONCE, EKG>
[2024-01-29] MEDS: alum-mag-hydroxide-sime 30 mL UDC PO ×2 (11:05→14:29)
[2024-01-29] MEDS: HYDROmorphone 1 mg/mL INJ 1 mL 0.5 MG IVP (11:05)
--- NOTE | 2024-01-29 11:14 | ECG_ITS ---
[facility] Test Date: 2024-01-29 Pat Name: Garry Corley Department: Room: 111 Gender: Male Senior Ui Developer: : 1955 Requested By: Radha Shirley Order Number: [id number] Ramos MD: Espinoza Pedroza M.D. Measurements Intervals [place] Rate: 73 P: 50 TN: 160 QRS: 24 QRSD: 99 T: 62 QT: 412 QTc: 457 Interpretive Statements SINUS RHYTHM Compared to ECG 01/29/2024 07:58:15 Sinus bradycardia no longer present Electronically Signed On 01-31-2024 19:10:35 MACHINE ROOM ENGINEER by Espinoza Pedroza M.D. [id number]
--- NOTE | 2024-01-29 14:00 | PM.HP ---
Providers/Chief Complaint Admitting Physician: Maribell Osborn MD Primary Care Provider: Hiren Holloway MD Chief Complaint: chest pain History of Present Illness Garry Corley is a 68 year old male with Hx of HTN, HLD, hypothyroidism, Chronic low back pain, anxiety, GERD, erectile dysfunction presented with complaint of midsternal chest pain since yesterday afternoon. As per the patient he started having nausea following lunch yesterday which was followed by midsternal chest pain that persisted until he came to ER. He states chest pain is midsternal, sharp, pressure-like, burning in epigastric area, radiating up to mid sternum, 10/10 in intensity, continuous, associated with nausea, no aggravating or relieving factors. He does state that he has history of chronic back pain and has been taking oxycodone for years. Denies any history of fever, cold, cough, shortness of breath, dizziness, vomiting, diarrhea or urinary complaints. Denies any history of recent travel or sick contact. In ER he was found to be hypertensive with blood pressure of 180/106, received IV Vasotec and p.o. lisinopril with no relief. EKG was sinus bradycardia at 45 to 55 bpm, no acute ST-T changes Lactic acid was 2.5 Troponins were 9, 6, 6 Review of Systems General: Reports: 10 or more systems reviewed and unremarkable except in HPI and below Medications/Allergies Home Medications Medication Instructions Recorded Confirmed Last Taken Type naloxone 4 mg/actuation nasal 4 mg intranasal Q3M PRN opioid 04/15/23 01/29/24 Unknown Rx spray (Narcan) overdose #2 ea oxycodone 10 mg tablet 10 mg PO Q4H PRN lower back pain 06/12/23 01/29/24 01/28/24 Rx 30 days #180 tabs potassium chloride 20 mEq 20 meq PO DAILY #30 tabs 11/19/23 01/29/24 01/28/24 Rx tablet,extended release atorvastatin 40 mg tablet 40 mg PO DAILY #90 tabs 01/24/24 01/29/24 01/28/24 Rx diazepam 5 mg tablet 5 mg PO BID PRN anxiety #60 tabs 01/24/24 01/29/24 Unknown Rx levothyroxine 25 mcg capsule 25 mcg PO DAILY #90 caps 01/24/24 01/29/24 01/28/24 Rx lisinopril 40 mg tablet 40 mg PO DAILY #90 tabs 01/24/24 01/29/24 01/28/24 Rx omeprazole 20 mg capsule,delayed 20 mg PO DAILY #90 caps 01/24/24 01/29/24 01/28/24 Rx release sildenafil 100 mg tablet 100 mg PO DAILY PRN sexual 01/24/24 01/29/24 Unknown Rx activity #30 tabs Allergies Allergy/AdvReac Type Severity Reaction Status Date / Time naproxen Allergy Mild Swell Verified 12/15/23 11:14 PFSH Acute PFSH: Medical History GERD (gastroesophageal reflux disease) Anxiety Hyperlipidemia Erectile dysfunction Chronic back pain Hypothyroidism Arthritis Fatty liver Hypertension Surgical History History of back surgery Family History Father Cancer Lung Mother Alzheimer's dementia Social History Smoking and tobacco/nicotine status: former use of tobacco/nicotine Quit status (tobacco/nicotine): has tried quititng Alcohol intake: current Alcohol intake frequency: few times a month Alcohol type: hard liquor Substance/Drug Use: never Adopted: No Caregiver/support person: No Lives independently: Yes Household members: spouse service: No Current occupational status: retired and disabled Current occupational exposures/hazards: Yes Current gender identity: Male Vitals/I&O/Wt Last Vital Signs Temp 97.5 F L 01/29/24 12:13 Pulse 61 01/29/24 12:27 Resp 19 H 01/29/24 12:13 BP 142/70 01/29/24 12:13 Pulse Ox 91 01/29/24 12:27 O2 Del Method Nasal Cannula 01/29/24 12:27 O2 Flow Rate 2 01/29/24 12:27 01/28/24 01/29/24 01/29/24 22:59 06:59 14:59 Intake Total 0 / 0 Balance 0 / 0 Physical Exam Narrative: He is alert awake oriented x 3, in severe distress due to chest pain, seems slightly short of breath but saturating well. Chest clear to auscultation bilaterally, pain nonreproducible Cardiovascular normal heart sounds no murmurs Abdomen soft nontender distended normal bowel sounds Extremities no edema noted bilateral lower extremity Data 01/29/24 05:52 01/29/24 05:52 A&P Assessment and plan (1) Accelerated hypertension: (2) Atypical chest pain: (3) GERD (gastroesophageal reflux disease): (4) Anxiety: (5) Hyperlipidemia: Qualifiers: Hyperlipidemia type: mixed hyperlipidemia Qualified Code(s): E78.2 - Mixed hyperlipidemia (6) Hypothyroidism: Qualifiers: Hypothyroidism type: acquired Qualified Code(s): E03.9 - Hypothyroidism, unspecified (7) Hypertension: Qualifiers: Hypertension type: primary hypertension Qualified Code(s): I10 - Essential (primary) hypertension Plan Garry Corley is a 68 year old male with Hx of HTN, HLD, hypothyroidism, Chronic low back pain, anxiety, GERD, erectile dysfunction presented with complaint of midsternal chest pain since yesterday afternoon. As per the patient he started having nausea following lunch yesterday which was followed by severe midsternal chest pain that persisted until he came to ER. #Chest pain-likely secondary to gastritis/GERD Will rule out ACS 3 sets of troponins 9, 6, 6 Most recent EKG normal sinus rhythm at [address], [address]-T changes Continue cardiac monitoring Will do pain control with IV morphine 2 mg every 4 hours as needed for severe pain and p.o. [place] 5/325 mg every 4 hours as needed for mild to moderate pain P.o. Maalox 30 mL every 6 hours IV Protonix 40 mg twice daily Chest x-ray negative for any acute findings CTA chest negative for acute findings, no dissection or aneurysm seen CT abdomen pelvis showed 1. Cholelithiasis with a slightly hydropic gallbladder. There is no adjacent inflammation or wall thickening. Normal common bile duct. 2. No renal obstruction. Mild bilateral perinephric stranding may be chronic. 3. Distal colonic diverticulosis without acute diverticulitis. 4. Atherosclerosis aorta. 5. Normal appendix. # Hypertensive urgency-likely secondary to pain Had blood pressure of 180/106 Started on Cardene drip in ER, current blood pressure in 150s Will continue Cardene drip for now Continue PRACTICE MANAGEMENT CONSULTANT lisinopril and Lasix # Hyperlipidemia-continue PRACTICE MANAGEMENT CONSULTANT atorvastatin #Hypothyroidism-continue PRACTICE MANAGEMENT CONSULTANT levothyroxine #Low back pain-continue PRACTICE MANAGEMENT CONSULTANT duloxetine, diazepam, gabapentin. DVT prophylaxis with subcutaneous heparin GI prophylaxis, already started on IV Protonix CODE STATUS discussed with patient and at bedside, he is full code for now Attestations Medical Necessity Statement*: He needs continued hospitalization not crossing 2 midnights for management of severe midsternal chest pain, rule out ACS, hypertensive urgency with Cardene drip, management of gastritis with IV Protonix. Time Spent in Patient Care: 45-minute Coding Level of Care Code Acute Code for Chg Fwd Diagnoses Accelerated hypertension I10 Atypical chest pain R07.89 GERD (gastroesophageal reflux disease) K21.9 Anxiety F41.9 Mixed hyperlipidemia E78.2 Hyperlipidemia type: mixed hyperlipidemia Acquired hypothyroidism E03.9 Hypothyroidism type: acquired Primary hypertension I10 Hypertension type: primary hypertension Time Spent (min) 45
[2024-01-29] MEDS: heparin 5,000 unit/mL INJ 1 mL 5000 UNIT SUBCUT (14:30)
[2024-01-29] MEDS: pantoprazole 40 mg SDV IVP (14:30)
[2024-01-29] MEDS: HYDROcodone-acetaminophen 5-325 mg Tablet 1 TAB PO (14:30)
[2024-01-29] MEDS: tizanidine 4 mg Tablet 2 MG PO ×2 (17:17→23:05)
[2024-01-29] MEDS: ondansetron 2 mg/ML SDV 2 mL 4 MG IVP ×2 (17:17→23:06)
[2024-01-29] MEDS: metoclopramide 5 mg/mL SDV 2 mL IVP (20:09)
[2024-01-30] VITALS (11 sets, daily range): BP systolic 104–130; BP diastolic 55–71; PULSE 82–94; RESP 14–24; TEMP 36.5–37.7; O2SAT 91–98
[2024-01-30] MEDS: heparin 5,000 unit/mL INJ 1 mL 5000 UNIT SUBCUT ×2 (00:12→12:06)
[2024-01-30] MEDS: alum-mag-hydroxide-sime 30 mL UDC PO ×4 (00:12→18:19)
[2024-01-30] MEDS: HYDROcodone-acetaminophen 5-325 mg Tablet 1 TAB PO ×5 (00:12→20:17)
[2024-01-30] MEDS: pantoprazole 40 mg SDV IVP ×2 (00:15→12:06)
[2024-01-30] MEDS: diazePAM 5 mg Tablet PO ×2 (00:15→20:17)
--- NOTE | 2024-01-30 02:43 | PC.NURSE ---
Spoke to regarding patients complaints of nausea, little to no relief from IV zofran. ordered one time dose of reglan IVP.
[2024-01-30] MEDS: morphine 4 mg/mL SDV 1 mL 2 MG IVP ×4 (03:25→23:09)
[2024-01-30 04:27] LABS: Basophils # 0.1 10^3/uL (0.0-0.1); Basophils % 0.5 %; Eosinophils % 0.1 %; Lymphocytes # 1.1 10^3/uL (0.8-4.8); Lymphocytes % 7.1 %; Mean Corpuscular HGB Conc 34.8 g/dL (30-55); Mean Corpuscular Hemoglobin 32.2 pg (27-33); Mean Corpuscular Volume 92.7 fl (82-101); Mean Platelet Volume 11.4 fL (7.4-10.4); Monocytes # 1.5 10^3/uL (0.2-0.9); Monocytes % 9.8 %; Neutrophils # 12.68 10^3/uL (1.8-7.7); Nucleated Red Blood Cells % 0 %; Platelet Count 255 10^3/cmm (157-399); Red Blood Count 5.18 10^6/uL (3.85-5.65); Red Cell Distribution Width 12.4 % (12.1-15.1); White Blood Count 15.45 10^3/uL (3.29-11.43)
[2024-01-30] MEDS: tizanidine 4 mg Tablet 2 MG PO (05:43)
[2024-01-30 06:46] LABS: Blood Urea Nitrogen 11 mg/dL (8-23); Calcium 9.5 mg/dL (8.5-10.5); Carbon Dioxide 25 mmol/L (22-29); Chloride 98 mmol/L (98-107); Glomerular Filtration Rate 96.1 mL/min (90-130); Glucose 121 mg/dL (65-115); Magnesium 1.9 mg/dL (1.7-2.3); Osmolality Calculated 279 mOsm/kg (285-295); Sodium 134 mmol/L (136-145)
[2024-01-30 06:56] LABS: Anion Gap 15.2 (5-19); Potassium 4.2 mmol/L (3.5-5.1)
[2024-01-30] MEDS: levothyroxine 25 mcg Tablet PO (07:53)
[2024-01-30] MEDS: potassium chloride ER 20 mEq Tablet PO (07:53)
[2024-01-30] MEDS: atorvastatin 40 mg Tablet PO (07:54)
[2024-01-30] MEDS: lisinopril 20 mg Tablet 40 MG PO (07:54)
--- NOTE | 2024-01-30 08:01 | PC.NURSE ---
morphine given for a pain level of 8/10 report in lower abdomen.
[2024-01-30] MEDS: bisacodyl 5 mg Tablet PO (12:07)
--- NOTE | 2024-01-30 13:56 | PM.PN ---
Subjective Subjective: Seen him at bedside this morning. States feeling better, chest pain resolved but today has diffuse abdominal pain and has not had any bowel movement. Medications: Reviewed: Yes Vitals/I&O/Wt Last Vital Signs Temp 99.9 F H 01/30/24 11:48 Pulse 90 01/30/24 11:48 Resp 24 H 01/30/24 11:48 BP 104/55 01/30/24 11:48 Pulse Ox 95 01/30/24 11:48 O2 Del Method Room Air 01/30/24 07:57 O2 Flow Rate 2 01/29/24 12:27 01/29/24 01/30/24 01/30/24 22:59 06:59 14:59 Intake Total 200 / 200 Output Total 100 / 100 200 / 300 Balance 100 / 100 -200 / -100 Weight last 48 hrs Weight 97.976 kg Weight 97.976 kg Weight 99.79 kg Physical Exam Narrative: He is alert awake oriented x 3, in severe distress due to chest pain, seems slightly short of breath but saturating well. Chest clear to auscultation bilaterally, pain nonreproducible Cardiovascular normal heart sounds no murmurs Abdomen soft nontender distended normal bowel sounds Extremities no edema noted bilateral lower extremity Data 01/30/24 03:45 01/30/24 05:54 A&P Assessment and plan (1) Accelerated hypertension: (2) Atypical chest pain: (3) GERD (gastroesophageal reflux disease): (4) Anxiety: (5) Hyperlipidemia: Qualifiers: Hyperlipidemia type: mixed hyperlipidemia Qualified Code(s): E78.2 - Mixed hyperlipidemia (6) Hypothyroidism: Qualifiers: Hypothyroidism type: acquired Qualified Code(s): E03.9 - Hypothyroidism, unspecified (7) Hypertension: Qualifiers: Hypertension type: primary hypertension Qualified Code(s): I10 - Essential (primary) hypertension Plan Garry Corley is a 68 year old male with Hx of HTN, HLD, hypothyroidism, Chronic low back pain, anxiety, GERD, erectile dysfunction presented with complaint of midsternal chest pain since yesterday afternoon. As per the patient he started having nausea following lunch yesterday which was followed by severe midsternal chest pain that persisted until he came to ER. #Chest pain-likely secondary to gastritis/GERD Will rule out ACS 3 sets of troponins 9, 6, 6 Most recent EKG normal sinus rhythm at [address], [address]-T changes Continue cardiac monitoring Will do pain control with IV morphine 2 mg every 4 hours as needed for severe pain and p.o. [place] 5/325 mg every 4 hours as needed for mild to moderate pain P.o. Maalox 30 mL every 6 hours IV Protonix 40 mg twice daily Chest x-ray negative for any acute findings CTA chest negative for acute findings, no dissection or aneurysm seen CT abdomen pelvis showed 1. Cholelithiasis with a slightly hydropic gallbladder. There is no adjacent inflammation or wall thickening. Normal common bile duct. 2. No renal obstruction. Mild bilateral perinephric stranding may be chronic. 3. Distal colonic diverticulosis without acute diverticulitis. 4. Atherosclerosis aorta. 5. Normal appendix. # Hypertensive urgency-likely secondary to pain Had blood pressure of 180/106 Started on Cardene drip in ER, current blood pressure in 150s Will continue Cardene drip for now Continue EDUCATION DEPARTMENT REGISTRAR lisinopril and Lasix # Hyperlipidemia-continue EDUCATION DEPARTMENT REGISTRAR atorvastatin #Hypothyroidism-continue EDUCATION DEPARTMENT REGISTRAR levothyroxine #Low back pain-continue EDUCATION DEPARTMENT REGISTRAR duloxetine, diazepam, gabapentin. DVT prophylaxis with subcutaneous heparin GI prophylaxis, already started on IV Protonix CODE STATUS discussed with patient and at bedside, he is full code for now 01/30/24 Chest pain and now abdominal pain with gaseous distention likely secondary to gastritis versus GERD. Will continue current management. Will give Dulcolax and MiraLAX for constipation. Monitor for today. Anticipating discharge in a.m. blood pressure controlled. Has been off Cardene drip since yesterday morning. 2D echo was normal and showed LV systolic function is normal with EF of 55-60% Grade 1 diastolic dysfunction Trace mitral regurgitation Mild tricuspid regurgitation Ascending aorta is dilated with diameter of 3.74cm. No comparison studies are available. Attestations Medical Necessity Statement*: Anticipating discharge in a.m. Time Spent in Patient Care: 15-minute Coding Level of Care Code Acute Code for Chg Fwd Diagnoses Accelerated hypertension I10 Atypical chest pain R07.89 GERD (gastroesophageal reflux disease) K21.9 Anxiety F41.9 Mixed hyperlipidemia E78.2 Hyperlipidemia type: mixed hyperlipidemia Acquired hypothyroidism E03.9 Hypothyroidism type: acquired Primary hypertension I10 Hypertension type: primary hypertension Time Spent (min) 15
--- NOTE | 2024-01-30 14:05 | USCV_ITS ---
Garry Corley Age: 68 Gender: M : 1955 Exam Date: 01/30/2024 08:20 Ordering Phys: Maribell Osborn MD Technologist: Hung Griffin Exam Location: [facility] [place] Indication: chest pain BP: 123 / 68 HR: 78 Rhythm: Sinus Technical Quality: Adequate MEASUREMENTS (Male / Female) Normal Values 2D ECHO LV Diastolic Diameter PLAX 3.5 cm 4.2 - 5.9 / 3.9 - 5.3 cm IVS Diastolic Thickness 1.3 cm 0.6 - 1.0 / 0.6 - 0.9 cm IVS Systolic Thickness 1.4 cm LVPW Diastolic Thickness 1.4 cm 0.6 - 1.0 / 0.6 - 0.9 cm LVPW Systolic Thickness 1.9 cm LVOT Diameter 2.2 cm LV Ejection Fraction 2D Teich 68.4 % LV Ejection Fraction MOD 4C 73.5 % LV Ejection Fraction MOD 2C 67.8 % LV Ejection Fraction 2C AL 69.7 % LA Diameter 4.5 cm RA Systolic Volume 4C AL 49.5 ml RA Systolic Volume 4C MOD 49.0 ml LA Sys Volume AL 55.5 cm cubed LA Sys Volume Index AL 24.0 cm cubed/m squared Aorta at Sinotubular Diameter 2.4 cm IVC Diameter 1.8 cm M-MODE LA Ao Ratio MM 1.4 AV Cusp Separation MM 1.8 cm DOPPLER AV Peak Velocity 148.3 cm/s LVOT Peak Velocity 120.0 cm/s AV Area Cont Eq vti 3.4 cm squared AV Area Cont Eq pk 3.0 cm squared MV Peak Velocity 105.0 cm/s MV Area PHT 3.6 cm squared Mitral E to A Ratio 0.8 TV Peak Velocity 362.3 cm/s TR Peak Velocity 409.5 cm/s TR Peak Gradient 67.1 mmHg TR Mean Velocity 293.0 cm/s TR Mean Gradient 40.3 mmHg TR Velocity Time Integral 104.5 cm PV Peak Velocity 115.7 cm/s RV Ejection Time 0.3 s FINDINGS Left Ventricle Left ventricle is normal in size. LV systolic function is normal with EF of 55 to 60%. No regional wall motion abnormalities are seen. Grade 1 diastolic dysfunction Right Ventricle Normal in size and function Right Atrium Normal in size Left Atrium Normal in size Mitral Valve Structurally normal mitral valve. Trace mitral regurgitation. Aortic Valve Structurally normal aortic valve. No significant stenosis or regurgitation. Tricuspid Valve Mild tricuspid regurgitation. Insufficient TR jet to calculate RVSP Pulmonic Valve Trace pulmonic regurgitation. Pericardium Normal Aorta Ascending aorta is dilated with diameter of 3.74cm. IVC Appears to be normal CONCLUSIONS LV systolic function is normal with EF of 55-60% Grade 1 diastolic dysfunction Trace mitral regurgitation Mild tricuspid regurgitation Ascending aorta is dilated with diameter of 3.74cm. No comparison studies are available. Espinoza Pedroza MD (Electronically Signed) Final Date: 30 January 2024 12:13 S
[2024-01-30] MEDS: magnesium citrate Btl 296 mL 150 ML PO (16:43)
[2024-01-31] VITALS (12 sets, daily range): BP systolic 95–121; BP diastolic 52–72; PULSE 77–95; RESP 16–21; TEMP 36.7–37.8; O2SAT 91–93
[2024-01-31] MEDS: pantoprazole 40 mg SDV IVP ×3 (00:28→23:53)
[2024-01-31] MEDS: heparin 5,000 unit/mL INJ 1 mL 5000 UNIT SUBCUT ×2 (00:31→13:29)
[2024-01-31] MEDS: alum-mag-hydroxide-sime 30 mL UDC PO ×2 (00:34→13:28)
[2024-01-31] MEDS: acetaminophen 325 mg Tablet 650 MG PO (01:30)
[2024-01-31 04:43] LABS: Adenovirus Not Detected (NOT DETECT); Chlamydia Pneumoniae Not Detected (NOT DETECT); Coronavirus 229E,HKU1,NL63,OC4 Not Detected (NOT DETECT); Human Metapneumovirus Not Detected (NOT DETECT); Human Rhinovirus/Enterovirus Not Detected (NOT DETECT); Influenza A Not Detected (NOT DETECT); Influenza A H1 Not Detected (NOT DETECT); Influenza A H1-2009 Not Detected (NOT DETECT); Influenza A H3 Not Detected (NOT DETECT); Influenza B Not Detected (NOT DETECT); Mycoplasma Pneumoniae Not Detected (NOT DETECT); Parainfluenza Virus Type 1 Not Detected (NOT DETECT); Parainfluenza Virus Type 2 Not Detected (NOT DETECT); Parainfluenza Virus Type 3 Not Detected (NOT DETECT); Parainfluenza Virus Type 4 Not Detected (NOT DETECT); Respiratory Syncytial Virus A Not Detected (NOT DETECT); Respiratory Syncytial Virus B Not Detected (NOT DETECT); SARS-COV-2 Not Detected (NOT DETECT)
[2024-01-31 05:57] LABS: Alanine Aminotransferase 50 U/L (0-41); Albumin Level 3.5 g/dL (3.5-5.2); Alkaline Phosphatase 110 U/L (40-130); Anion Gap 8.9 (5-19); Aspartate Amino Transferase 16 U/L (0-40); Blood Urea Nitrogen 15 mg/dL (8-23); Calcium 9.3 mg/dL (8.5-10.5); Carbon Dioxide 29 mmol/L (22-29); Chloride 98 mmol/L (98-107); Globulin 2.5 g/dL (1.3-4.6); Glomerular Filtration Rate 112.1 mL/min (90-130); Glucose 108 mg/dL (65-115); Lipase 9 U/L (13-60); Potassium 3.9 mmol/L (3.5-5.1); Total Bilirubin 1.1 mg/dL (0.15-1.2)
[2024-01-31 06:00] LABS: Lactate (Lactic Acid level) 1.3 mmol/L (0.5-2.2); Osmolality Calculated 275 mOsm/kg (285-295); Sodium 132 mmol/L (136-145)
[2024-01-31] MEDS: lisinopril 20 mg Tablet 40 MG PO (08:46)
[2024-01-31] MEDS: levothyroxine 25 mcg Tablet PO (08:46)
[2024-01-31] MEDS: potassium chloride ER 20 mEq Tablet PO (08:46)
[2024-01-31] MEDS: atorvastatin 40 mg Tablet PO (08:46)
[2024-01-31] MEDS: morphine 4 mg/mL SDV 1 mL 2 MG IVP ×2 (08:47→23:52)
[2024-01-31] MEDS: diazePAM 5 mg Tablet PO (08:47)
--- NOTE | 2024-01-31 10:01 | CTR_ITS ---
PROCEDURE INFORMATION: Exam: CT Abdomen And Pelvis Without And With Contrast Exam date and time: 01/31/2024 12:27 PM Age: 68 years old Clinical indication: Abdominal pain;Multivessel atherosclerotic disease which involves the coronary arteries. Other procedure information: Rlq pain, black loose diarrhea TECHNIQUE: Imaging protocol: Computed tomography of the abdomen and pelvis without and with contrast. Radiation optimization: All CT scans at this facility use at least one of these dose optimization techniques: automated exposure control; mA and/or kV adjustment per patient size (includes targeted exams where dose is matched to clinical indication); or iterative reconstruction. Contrast material: OMNI 350; Contrast volume: 100 ml; Contrast route: INTRAVENOUS (IV); COMPARISON: CT abdomen pelvis wo con [id number] 01/29/2024 8:50 AM RADIATION DOSE METRICS: Total DLP (mGy-cm): 1819.07 FINDINGS: Lungs: Bibasilar consolidation may represent prominent atelectatic change or pneumonia. Liver: Normal. No mass. Gallbladder and biliary ducts: Gallbladder wall is thickened and edematous measuring 12 mm. There is pericholecystic fluid stranding. Cholelithiasis. Pancreas: Normal. No ductal dilation. Spleen: Normal. No splenomegaly. Adrenal glands: Normal. No mass. Kidneys and ureters: Normal. No hydronephrosis. Stomach and bowel: There is diverticulosis of the colon without evidence of diverticulitis. Appendix: A normal appendix is identified. Intraperitoneal space: There is a small amount of free fluid in the pelvis. Vasculature: Unremarkable. No abdominal aortic aneurysm. Lymph nodes: Unremarkable. No enlarged lymph nodes. Urinary bladder: Unremarkable as visualized. Reproductive: Unremarkable as visualized. Bones/joints: Unremarkable. No acute fracture. Soft tissues: Unremarkable. CT/CT abdomen pelvis wo/w [id number] IMPRESSION: 1. Findings as stated above are consistent with acute cholecystitis with associated cholelithiasis. 2. Bibasilar consolidation may represent prominent atelectatic change or pneumonia.
[2024-01-31] MEDS: iohexol 350 mg/mL 500 mL Btl (per mL) IV (12:37)
--- NOTE | 2024-01-31 16:02 | PM.PN ---
Subjective Subjective: Seen him at bedside this morning. He is still complaining of right lower quadrant abdominal pain associated with loose bowel movements, brownish in color. Denies any chest pain, nausea, vomiting. Medications: Reviewed: Yes Vitals/I&O/Wt Last Vital Signs Temp 98.3 F 01/31/24 12:00 Pulse 87 01/31/24 12:00 Resp 20 H 01/31/24 12:00 BP 95/72 01/31/24 12:00 Pulse Ox 92 01/31/24 12:00 O2 Del Method Room Air 01/31/24 12:00 O2 Flow Rate 2 01/29/24 12:27 01/31/24 01/31/24 01/31/24 06:59 14:59 22:59 Intake Total 250 / 370 120 / 120 Output Total 400 / 400 Balance 250 / 370 -280 / -280 Weight last 48 hrs Weight 97.976 kg Weight 97.976 kg Weight 97.976 kg Weight 99.79 kg Physical Exam Narrative: He is alert awake oriented x 3, in severe distress due to chest pain, seems slightly short of breath but saturating well. Chest clear to auscultation bilaterally, pain nonreproducible Cardiovascular normal heart sounds no murmurs Abdomen soft tender distended, increased bowel sounds Extremities no edema noted bilateral lower extremity Data 01/30/24 03:45 01/31/24 04:44 Micro: Microbiology 01/31/24 04:44 Blood Culture - Preliminary Blood SPECIMEN COLLECTED 01/31/24 04:40 Blood Culture - Preliminary Blood SPECIMEN COLLECTED A&P Assessment and plan (1) Accelerated hypertension: (2) Atypical chest pain: (3) GERD (gastroesophageal reflux disease): (4) Anxiety: (5) Hyperlipidemia: Qualifiers: Hyperlipidemia type: mixed hyperlipidemia Qualified Code(s): E78.2 - Mixed hyperlipidemia (6) Hypothyroidism: Qualifiers: Hypothyroidism type: acquired Qualified Code(s): E03.9 - Hypothyroidism, unspecified (7) Hypertension: Qualifiers: Hypertension type: primary hypertension Qualified Code(s): I10 - Essential (primary) hypertension (8) Acute cholecystitis: Plan Grary Corley is a 68 year old male with Hx of HTN, HLD, hypothyroidism, Chronic low back pain, anxiety, GERD, erectile dysfunction presented with complaint of midsternal chest pain since yesterday afternoon. As per the patient he started having nausea following lunch yesterday which was followed by severe midsternal chest pain that persisted until he came to ER. #Chest pain-likely secondary to gastritis/GERD Will rule out ACS 3 sets of troponins 9, 6, 6 Most recent EKG normal sinus rhythm at 73 bpm, no acute ST-T changes Continue cardiac monitoring Will do pain control with IV morphine 2 mg every 4 hours as needed for severe pain and p.o. [place] 5/325 mg every 4 hours as needed for mild to moderate pain P.o. Maalox 30 mL every 6 hours IV Protonix 40 mg twice daily Chest x-ray negative for any acute findings CTA chest negative for acute findings, no dissection or aneurysm seen CT abdomen pelvis showed 1. Cholelithiasis with a slightly hydropic gallbladder. There is no adjacent inflammation or wall thickening. Normal common bile duct. 2. No renal obstruction. Mild bilateral perinephric stranding may be chronic. 3. Distal colonic diverticulosis without acute diverticulitis. 4. Atherosclerosis aorta. 5. Normal appendix. # Hypertensive urgency-likely secondary to pain Had blood pressure of 180/106 Started on Cardene drip in ER, current blood pressure in 150s Will continue Cardene drip for now Continue ENERGY CONSERVATION SPECIALIST lisinopril and Lasix # Hyperlipidemia-continue ENERGY CONSERVATION SPECIALIST atorvastatin #Hypothyroidism-continue ENERGY CONSERVATION SPECIALIST levothyroxine #Low back pain-continue ENERGY CONSERVATION SPECIALIST duloxetine, diazepam, gabapentin. DVT prophylaxis with subcutaneous heparin GI prophylaxis, already started on IV Protonix CODE STATUS discussed with patient and at bedside, he is full code for now 01/30/24 Chest pain and now abdominal pain with gaseous distention likely secondary to gastritis versus GERD. Will continue current management. Will give Dulcolax and MiraLAX for constipation. Monitor for today. Anticipating discharge in a.m. blood pressure controlled. Has been off Cardene drip since yesterday morning. 2D echo was normal and showed LV systolic function is normal with EF of 55-60% Grade 1 diastolic dysfunction Trace mitral regurgitation Mild tricuspid regurgitation Ascending aorta is dilated with diameter of 3.74cm. No comparison studies are available. 01/31/24 He is still complaining of right lower quadrant abdominal pain associated with diarrhea, poor p.o. intake. CT abdomen pelvis with and without contrast showed IMPRESSION: 1. Findings as stated above are consistent with acute cholecystitis with associated cholelithiasis. 2. Bibasilar consolidation may represent prominent atelectatic change or pneumonia. Will start on IV Zosyn 3.375 mg every 8 hours. Surgery consulted. Will keep n.p.o. for now. He is having soft blood pressure likely secondary to diarrhea, will start on IV fluids normal saline at 75 cc/h and hold home medication lisinopril for now. He is going to be transferred to medical floor for further management. Attestations Medical Necessity Statement*: He needs continued hospitalization for management of acute cholecystitis with IV antibiotics, fluids and surgery if needed Time Spent in Patient Care: 20 minutes Coding Level of Care Code Acute Code for Chg Fwd Diagnoses Accelerated hypertension I10 Atypical chest pain R07.89 GERD (gastroesophageal reflux disease) K21.9 Anxiety F41.9 Mixed hyperlipidemia E78.2 Hyperlipidemia type: mixed hyperlipidemia Acquired hypothyroidism E03.9 Hypothyroidism type: acquired Primary hypertension I10 Hypertension type: primary hypertension Acute cholecystitis K81.0 Time Spent (min) 20
--- NOTE | 2024-01-31 16:30 | PC.NURSE ---
report called to med surg nurse Talked to nurse Goldberg in med surg for pt's condition, treatments and plan. Informed that surgeon is in room, pt needs to be NPO for possible surgery, antibiotic and fluids are ordered.
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
--- NOTE | 2024-01-31 16:45 | PC.NURSE ---
Desaturation pt spo2 drops to 82 to 83% while sleeping, w/occ. apneic episode. Informed Dr. Osborn and we educated pt and on putting oxygen via nasal cannula when he sleeps. Informed medsurg nurse that pt use 2 L/min nasal cannula when sleeping.
--- NOTE | 2024-01-31 16:56 | PC.NURSE ---
transferred to [facility] in room 259 bed 2, with all pt's belongings carried by his .
[2024-01-31] MEDS: sodium chloride 0.9% 1,000 ML 150 ML IV (18:19)
[2024-01-31] MEDS: piperacillin-tazobactam 3.375 GM in sodium chloride 0.9% (plus) 50 ML IV (18:20)
[2024-01-31] MEDS: ketorolac 30 mg/mL INJ 15 MG IVP ×2 (18:21→23:53)
[2024-01-31] MEDS: HYDROcodone-acetaminophen 5-325 mg Tablet 1 TAB PO (22:25)
[2024-02-01] VITALS (27 sets, daily range): BP systolic 101–145; BP diastolic 48–74; PULSE 63–96; RESP 10–23; TEMP 36.1–37.1; O2SAT 91–98; BMI 23.7
[2024-02-01] MEDS: sodium chloride 0.9% 1,000 ML 150 ML IV ×3 (01:04→21:05)
[2024-02-01] MEDS: piperacillin-tazobactam 3.375 GM in sodium chloride 0.9% (plus) 50 ML IV ×3 (01:50→17:24)
[2024-02-01] MEDS: ketorolac 30 mg/mL INJ 15 MG IVP ×3 (05:54→23:22)
[2024-02-01] MEDS: morphine 4 mg/mL SDV 1 mL 2 MG IVP ×4 (06:02→23:21)
[2024-02-01 06:04] LABS: Basophils # 0.1 10^3/uL (0.0-0.1); Basophils % 0.7 %; Eosinophils # 0.1 10^3/uL (0.0-0.8); Eosinophils % 0.6 %; Hematocrit 41.4 % (37-53); Lymphocytes # 1.1 10^3/uL (0.8-4.8); Lymphocytes % 9.8 %; Mean Corpuscular HGB Conc 33.3 g/dL (30-55); Mean Corpuscular Hemoglobin 32.1 pg (27-33); Mean Corpuscular Volume 96.3 fl (82-101); Monocytes # 1.2 10^3/uL (0.2-0.9); Monocytes % 11.5 %; Neutrophils # 8.33 10^3/uL (1.8-7.7); Neutrophils % 77.1 %; Nucleated Red Blood Cells % 0 %; Platelet Count 241 10^3/cmm (157-399); Red Cell Distribution Width 12.7 % (12.1-15.1)
--- NOTE | 2024-02-01 06:10 | PC.NURSE ---
Pt's right hand IV and ultrasound guided left AC IV both infiltrated. Pt has poor peripheral access. Dr. Monae notified and okayed a lower extremity IV and ordered PICC placement. However, the charge nurse AMADA Caldwell and floor nurse, AMADA Morrissey, were able to get an IV in the pt's left wrist. Dr. Monae still wants PICC placement due to the IV only being a 22 gauge.
[2024-02-01 06:22] LABS: Alanine Aminotransferase 43 U/L (0-41); Albumin Level 3.2 g/dL (3.5-5.2); Alkaline Phosphatase 143 U/L (40-130); Aspartate Amino Transferase 31 U/L (0-40); Blood Urea Nitrogen 21 mg/dL (8-23); Calcium 9.1 mg/dL (8.5-10.5); Carbon Dioxide 26 mmol/L (22-29); Chloride 98 mmol/L (98-107); Globulin 2.7 g/dL (1.3-4.6); Glomerular Filtration Rate 96.1 mL/min (90-130); Glucose 111 mg/dL (65-115); Osmolality Calculated 278 mOsm/kg (285-295); Sodium 132 mmol/L (136-145); Total Bilirubin 2.3 mg/dL (0.15-1.2); Total Protein 5.9 g/dL (6.6-8.7)
--- NOTE | 2024-02-01 07:15 | US_ITS ---
WS: [id number] RIGHT UPPER QUADRANT ULTRASOUND HISTORY: Choledocolithiasis COMPARISON: CT 01/31/2024 Liver: 15.9 cm in length. Normal size liver and echogenicity. No bile duct dilatation or mass. Portal Vein: Normal hepatopetal flow with monophasic waveform. Gallbladder: Abnormal gallbladder. Gallbladder measures less than 4 cm transversely. Stones and sludg e within the gallbladder. There is diffuse gallbladder wall thickening with edema. CBD: 0.7 cm Pancreas: Obscured by bowel gas. Right kidney: 10.8 cm in length. Normal size and echogenicity. No hydronephrosis or mass. Aorta and IVC: Unremarkable abdominal aorta and IVC. No ascites. US/US gall bladder [id number] IMPRESSION: 1. Normal common bile duct. 2. Ultrasound findings suggestive of acute cholecystitis. No gallbladder hydro ps at this time. No intrahepatic duct dilatation.
--- NOTE | 2024-02-01 08:00 | PICC.NOTE ---
Midline placed to right brachial vein. Referred to vascular access nurse for midline placement due to poor access. Risks and benefits discussed and informed consent obtained from pt. Right arm assessed with right brachial vein measuring 4.8 mm, straight, and apparent best choice for placement. Using sterile technique and MST, right brachial vein accessed x 1 stick. Mid-arm circumference measured 10 cm from right AC 30 cm. Trimmed cath 10 cm with 0 cm external length noted. Line secured with stat-lock. Insertion site covered with Biopatch and TSM. Report given to bedside nurse, AMADA Bernard.
[2024-02-01] MEDS: levothyroxine 25 mcg Tablet PO (08:34)
[2024-02-01] MEDS: atorvastatin 40 mg Tablet PO (08:34)
[2024-02-01] MEDS: potassium chloride ER 20 mEq Tablet PO (08:34)
--- NOTE | 2024-02-01 09:25 | W.PM.OPSUD ---
Surgery/Procedure H&P Update DATE OF PROCEDURE: February 01, 2024 DATE H&P PERFORMED: 01/31/24 H&P UPDATE INFORMATION: I have reviewed H&P completed within last 30 days, I have examined patient prior to procedure, No changes to prior documentation and H&P is in [facility] [place] on date indicated CHANGES TO PREVIOUS DOCUMENTATION: White count has improved in the last 24 hours, there was an uptrend of LFTs I decided to obtain ultrasound gallbladder as bilirubin was elevated, ultrasound shows no evidence of choledocholithiasis, we will proceed with laparoscopic cholecystectomy. PLANNED PROCEDURE: Operation Date: 02/01/24 13:10 Proposed Procedures p Laparoscopic Cholecystectomy(Not Applicable) - Yunior Prince MD
--- NOTE | 2024-02-01 10:14 | PC.CHAP ---
Pastoral Care Encounter/Spiritual Assessment Type of Contact [] Declined licensed staff mft visit [] Patient/Family/Request visit [] Outpatient visit [] Follow-up visit [] Physician referral [] Code/Alert [x] Routine visit [] Staff referral [] Actively dying [] Patient sleeping [x] Family support [] [] Out of room [] Palliative care [] [] Receiving care in room [] Pre-surgical visit [] Trauma [] Long length of stay [] ICU visit [] Other: Relational/Emotional Strength [] Patient feels connected with others/family/visitors/staff [] Distress [] Loneliness/isolation [] Abandonment Spirituality of Patient [x] Person of Joelle [] Attends Orthodoxy of their Joelle [x] Believes in Prayer [] Reads Bible or Pentecostalism materials [] There are Spiritual issues to be addressed Cinder Pitman Interventions [x] Prayer [x] Active listening [] Non-anxious presence [] Spiritual/emotional support [] Crisis/trauma care [] Spiritual counseling [] Bereavement support [] Provided bereavement packet [x] Provided Bible/devotional materials [] Provided toy/stuffed animal, coloring book to patient or family member [] Provided Communion [] Anointing/[place] [] Salvation [x] Completed spiritual assessment [] Other: Impact on Illness or Injury [] Angry [] Fearful [] Anxious [] Often cries [] Exhaustion [] Unable to work [] Unable to attend religious [] Unable to walk/stand [] Unable to read [] Unable to drive [] Unable to eat/drink [] Unable to sleep [] Unable to be with family [] Patient intubated [] Other: Summary Time spent with patient 15 min
--- NOTE | 2024-02-01 12:42 | PM.PN ---
Subjective Subjective: Seen this morning. No acute events overnight. Going for cholecystectomy today. Vitals/I&O/Wt Last Vital Signs Temp 98.8 F 02/01/24 07:31 Pulse 63 02/01/24 07:31 Resp 18 02/01/24 10:55 BP 107/57 02/01/24 07:31 Pulse Ox 93 02/01/24 07:31 O2 Del Method Room Air 02/01/24 07:31 O2 Flow Rate 2 01/29/24 12:27 01/31/24 02/01/24 02/01/24 22:59 06:59 14:59 Intake Total 50 / 170 1655.000 / 1825.000 395 / 395 Balance 50 / -230 1655.000 / 1425.000 395 / 395 Weight last 48 hrs Weight 97.976 kg Weight 97.976 kg Physical Exam Narrative: No acute distress, sitting up in bed appearing comfortable at this time. Chest clear to auscultation bilaterally Cardiovascular normal heart sounds no murmurs Abdomen soft tender distended, increased bowel sounds Extremities no edema noted bilateral lower extremity Data 02/01/24 05:54 02/01/24 05:54 Micro: Microbiology 01/31/24 04:44 Blood Culture - Preliminary Blood NEGATIVE TO DATE 01/31/24 04:40 Blood Culture - Preliminary Blood NEGATIVE TO DATE A&P Assessment and plan (1) Accelerated hypertension: (2) Atypical chest pain: (3) GERD (gastroesophageal reflux disease): (4) Anxiety: (5) Hyperlipidemia: Qualifiers: Hyperlipidemia type: mixed hyperlipidemia Qualified Code(s): E78.2 - Mixed hyperlipidemia (6) Hypothyroidism: Qualifiers: Hypothyroidism type: acquired Qualified Code(s): E03.9 - Hypothyroidism, unspecified (7) Hypertension: Qualifiers: Hypertension type: primary hypertension Qualified Code(s): I10 - Essential (primary) hypertension (8) Acute cholecystitis: Plan Garry Corley is a 68 year old male with Hx of HTN, HLD, hypothyroidism, Chronic low back pain, anxiety, GERD, erectile dysfunction presented with complaint of midsternal chest pain since yesterday afternoon. As per the patient he started having nausea following lunch yesterday which was followed by severe midsternal chest pain that persisted until he came to ER. #Chest pain-likely secondary to gastritis/GERD Will rule out ACS 3 sets of troponins 9, 6, 6 Most recent EKG normal sinus rhythm at [address], [address]-T changes Continue cardiac monitoring Will do pain control with IV morphine 2 mg every 4 hours as needed for severe pain and p.o. [place] 5/325 mg every 4 hours as needed for mild to moderate pain P.o. Maalox 30 mL every 6 hours IV Protonix 40 mg twice daily Chest x-ray negative for any acute findings CTA chest negative for acute findings, no dissection or aneurysm seen CT abdomen pelvis showed 1. Cholelithiasis with a slightly hydropic gallbladder. There is no adjacent inflammation or wall thickening. Normal common bile duct. 2. No renal obstruction. Mild bilateral perinephric stranding may be chronic. 3. Distal colonic diverticulosis without acute diverticulitis. 4. Atherosclerosis aorta. 5. Normal appendix. # Hypertensive urgency-likely secondary to pain Had blood pressure of 180/106 Started on Cardene drip in ER, current blood pressure in 150s Will continue Cardene drip for now Continue [employer] lisinopril and Lasix # Hyperlipidemia-continue [employer] atorvastatin #Hypothyroidism-continue [employer] levothyroxine #Low back pain-continue [employer] duloxetine, diazepam, gabapentin. DVT prophylaxis with subcutaneous heparin GI prophylaxis, already started on IV Protonix CODE STATUS discussed with patient and at bedside, he is full code for now 01/30/24 Chest pain and now abdominal pain with gaseous distention likely secondary to gastritis versus GERD. Will continue current management. Will give Dulcolax and MiraLAX for constipation. Monitor for today. Anticipating discharge in a.m. blood pressure controlled. Has been off Cardene drip since yesterday morning. 2D echo was normal and showed LV systolic function is normal with EF of 55-60% Grade 1 diastolic dysfunction Trace mitral regurgitation Mild tricuspid regurgitation Ascending aorta is dilated with diameter of 3.74cm. No comparison studies are available. 01/31/24 He is still complaining of right lower quadrant abdominal pain associated with diarrhea, poor p.o. intake. CT abdomen pelvis with and without contrast showed IMPRESSION: 1. Findings as stated above are consistent with acute cholecystitis with associated cholelithiasis. 2. Bibasilar consolidation may represent prominent atelectatic change or pneumonia. Will start on IV Zosyn 3.375 mg every 8 hours. Surgery consulted. Will keep n.p.o. for now. He is having soft blood pressure likely secondary to diarrhea, will start on IV fluids normal saline at 75 cc/h and hold home medication lisinopril for now. He is going to be transferred to medical floor for further management. 02/01/2024 -Patient going for cholecystectomy today. ? Has been n.p.o. since midnight ? Continue Zosyn. ? General Surgery following and consulted. Blood pressure stable. Attestations Medical Necessity Statement*: Plan for cholecystectomy today. Diagnoses Accelerated hypertension I10 Atypical chest pain R07.89 GERD (gastroesophageal reflux disease) K21.9 Anxiety F41.9 Mixed hyperlipidemia E78.2 Hyperlipidemia type: mixed hyperlipidemia Acquired hypothyroidism E03.9 Hypothyroidism type: acquired Primary hypertension I10 Hypertension type: primary hypertension Acute cholecystitis K81.0
--- NOTE | 2024-02-01 13:04 | P.ANESASSM_ITS ---
Pre-Anesthetic Assessment Height/Weight: Height 6 ft 5 in Weight 216 lb Temp Pulse Resp BP Pulse Ox O2 Del Method O2 Flow Rate 98.0 F 70 18 131/74 93 Room Air 2 02/01/24 12:00 02/01/24 12:00 02/01/24 12:00 02/01/24 12:00 02/01/24 12:00 02/01/24 12:00 01/29/24 12:27 Preop Diagnosis: Acute cholecystitis Operation Date: 02/01/24 13:10 Proposed Procedures p Laparoscopic Cholecystectomy(Not Applicable) - Yunior Prince MD Was Beta Nick taken within 24 hours: N/A Was Clonidine taken within 24 hours: N/A Last intake: Intake Last Liquid Date 01/31/24 Last Solid Date 01/31/24 Social Tobacco and No alcohol Exam alert, oriented x 3, clear to auscultation bilaterally and regular rate & rhythm Airway Submandibular: within normal limits Cervical ROM: within normal limits Mallampati: Class II Dentition: other (edentulous) Anesthetic Plan ASA status: 3 Anesthesia: General Other: Patient initially admitted 3 days ago with chest pain, found to have acute cholecystitis on most recent CT scan Cardiology workup negative, echo performed showing EF 55 to 60%. Mildly dilated ascending aorta at 3.7 cm History of hypertension on lisinopril GERD on omeprazole Current smoker HARVEY, no treatment Patient is able to perform ADLs Plan for GETA Medications/Allergies Home Medications Medication Instructions Recorded Confirmed Last Taken Type naloxone 4 mg/actuation nasal 4 mg intranasal Q3M PRN opioid 04/15/23 01/29/24 Unknown Rx spray (Narcan) overdose #2 ea oxycodone 10 mg tablet 10 mg PO Q4H PRN lower back pain 06/12/23 01/29/24 01/28/24 Rx 30 days #180 tabs potassium chloride 20 mEq 20 meq PO DAILY #30 tabs 11/19/23 01/29/24 01/28/24 Rx tablet,extended release atorvastatin 40 mg tablet 40 mg PO DAILY #90 tabs 01/24/24 01/29/24 01/28/24 Rx diazepam 5 mg tablet 5 mg PO BID PRN anxiety #60 tabs 01/24/24 01/29/24 Unknown Rx levothyroxine 25 mcg capsule 25 mcg PO DAILY #90 caps 1101/29/24 01/28/24 Rx lisinopril 40 mg tablet 40 mg PO DAILY #90 tabs 01/24/24 01/29/24 01/28/24 Rx omeprazole 20 mg capsule,delayed 20 mg PO DAILY #90 caps 01/24/24 01/29/24 01/28/24 Rx release sildenafil 100 mg tablet 100 mg PO DAILY PRN sexual 01/24/24 01/29/24 Unknown Rx activity #30 tabs Allergies Allergy/AdvReac Type Severity Reaction Status Date / Time naproxen Allergy Mild Swell Verified 12/15/23 11:14 Current Medications Generic Name Dose Route Start Last Admin Trade Name Freq PRN Reason Stop Dose Admin Acetaminophen 650 mg 01/31/24 00:49 01/31/24 01:30 Acetaminophen 325 Mg Tablet PO 650 mg Q6H PRN Administration MILD PAIN Hydrocodone Bitart/Acetaminophen 1 tab 01/29/24 12:38 01/31/24 22:25 Hydrocodone-Acetaminophen 5-325 Mg Tablet PO 1 tab Q4H PRN Administration MODERATE TO SEVERE PAIN Atorvastatin Calcium 40 mg 01/30/24 09:00 02/01/24 08:34 Atorvastatin 40 Mg Tablet PO 40 mg DAILY CONSTANCE Administration Bisacodyl 5 mg 01/30/24 10:54 01/30/24 12:07 Bisacodyl 5 Mg Tablet PO 5 mg DAILY PRN Administration CONSTIPATION Diazepam 5 mg 01/29/24 12:41 01/31/24 08:47 Diazepam 5 Mg Tablet PO 5 mg BID PRN Administration anxiety Piperacillin Sod/Tazobactam 50 mls @ 12.5 mls/hr 01/31/24 15:45 02/01/24 10:56 Sod 3.375 gm/ Sodium Chloride IV 12.5 mls/hr Q8H CONSTANCE Administration Protocol Sodium Chloride 1,000 mls @ 150 mls/hr 01/31/24 16:30 02/01/24 08:32 Sodium Chloride 0.9% IV 150 mls/hr .Q6H40M CONSTANCE Administration Ketorolac Tromethamine 15 mg 01/31/24 16:30 02/01/24 05:54 Ketorolac 30 Mg/Ml Inj IVP 02/05/24 16:29 15 mg Q6H CONSTANCE Administration Levothyroxine Sodium 25 mcg 01/30/24 09:00 02/01/24 08:34 Levothyroxine 25 Mcg Tablet PO 25 mcg DAILY CONSTANCE Administration Metoclopramide HCl 5 mg 01/29/24 19:45 01/29/24 20:09 Metoclopramide 5 Mg/Ml Sdv 2 Ml IVP 5 mg ONCE PRN Administration NAUSEA AND VOMITING Morphine Sulfate 2 mg 01/29/24 12:38 02/01/24 10:55 Morphine 4 Mg/Ml Sdv 1 Ml IVP 2 mg Q4H PRN Administration SEVERE PAIN Ondansetron HCl 4 mg 01/29/24 12:38 01/29/24 23:06 Ondansetron 2 Mg/Ml Sdv 2 Ml IVP 4 mg Q8H PRN Administration vomiting, or N/V if npo Pantoprazole Sodium 40 mg 01/29/24 12:45 01/31/24 23:53 Pantoprazole 40 Mg Sdv IVP 40 mg Q12H CONSTANCE Administration Potassium Chloride 20 meq 01/30/24 09:00 02/01/24 08:34 Potassium Chloride Er 20 Meq Tablet PO 20 meq DAILY CONSTANCE Administration Tizanidine HCl 2 mg 01/29/24 14:28 01/30/24 05:43 Tizanidine 4 Mg Tablet PO 2 mg TID PRN Administration SPASMS PFSH Anesthesia Medical History GERD (gastroesophageal reflux disease) Anxiety Hyperlipidemia Erectile dysfunction Chronic back pain Hypothyroidism Arthritis Fatty liver Hypertension Surgical History History of back surgery Family History Father Cancer Lung Mother Alzheimer's dementia Social History Smoking and tobacco/nicotine status: former use of tobacco/nicotine Quit status (tobacco/nicotine): has tried quititng Alcohol intake: current Alcohol intake frequency: few times a month Alcohol type: hard liquor Substance/Drug Use: never Adopted: No Caregiver/support person: No Lives independently: Yes Household members: spouse service: No Current occupational status: retired and disabled Current occupational exposures/hazards: Yes Current gender identity: Male Data Anesthesia 02/01/24 05:54 02/01/24 05:54 Short CBC 02/01/24 Range/Units 05:54 WBC 10.80 (3.29-11.43) 10^3/uL Hgb 13.80 (11.27-16.99) g/dL Hct 41.4 (37-53) % MCV 96.3 (82-101) fl Plt Count 241 (157-399) 10^3/cmm Neut % (Auto) 77.1 % Neut # (Auto) 8.33 H (1.8-7.7) 10^3/uL BMP 01/31/24 02/01/24 04:44 05:54 Sodium 132 L 132 L Potassium 3.9 4.0 Chloride 98 98 Carbon Dioxide 29 26 BUN 15 21 Creatinine 0.7 0.8 Glucose 108 111 Calcium 9.3 9.1 Liver Function 01/31/24 02/01/24 Range/Units 04:44 05:54 Total Bilirubin 1.1 2.3 H (0.15-1.2) mg/dL Direct Bilirubin 1.90 H (0.00-0.30) mg/dL AST 16 31 (0-40) U/L ALT 50 H 43 H (0-41) U/L Alkaline Phosphatase 110 143 H (40-130) U/L Albumin 3.5 3.2 L (3.5-5.2) g/dL COVID Results 01/31/24 02:30 Coronavirus 229E (PCR) Not detected SARS-CoV-2 (PCR) Not detected Microbiology 01/31/24 04:44 Blood Culture - Preliminary Blood NEGATIVE TO DATE 01/31/24 04:40 Blood Culture - Preliminary Blood NEGATIVE TO DATE Cardiac Studies: 2 Echocardiogram 01/30/24
[2024-02-01] MEDS: sodium chloride 0.9% 1,000 ML 30 ML IV (13:14)
[2024-02-01] MEDS: lidocaine-epi 1% 20 mL INJ 10 ML INJECTION (14:38)
[2024-02-01] MEDS: BUPivacaine 0.25% INJ 10 mL INJECTION (14:39)
--- NOTE | 2024-02-01 14:59 | US_ITS ---
WS: [id number] ULTRASOUND GUIDED cholecystotomy tube. HISTORY: Acute cholecystitis Procedure, risks, and complications are explained to the patient's . Patient is sedated due to re cent surgery and attempted cholecystectomy. Consent was obtained. Consent included risk of bleeding a nd worsening sepsis and peritonitis. Skin is cleansed with ChloraPrep and anesthetized with 1% buffer ed lidocaine. Cholecystotomy tube is performed under general sedation. Gallbladder was localized. Due to distention of the gallbladder and position of the gallbladder a tra ct through the liver was not possible. Skin is cleansed with ChloraPrep and anesthetized with lidocai ne. A small dermatotomy was made. Access into the gallbladder was performed with a 17-gauge needle. A wire was placed through the needle and tract is dilated. Once the tract is dilated a 10 Iraqi percu taneous drain is placed within the gallbladder. The wire was removed and the pigtail is formed. Princess ter is secured and connected to a vacuum drainage bag. Bile is removed into the drainage bag. Ultraso und confirms pigtail is in good position. Post procedure orders include no tension on the catheter, record output every 8 hours and flush the c atheter with 10 cc of sterile fluid every 8 hours. US/US guide cholecystostomy 31615 IMPRESSION: 1. Uncomplicated placement of a cholecystotomy tube. 10 Iraqi pigtail cathete r is noted coiled in the gallbladder lumen. Bowel is being aspirated. 2. This cholecystotomy tube will need to remain in place for 4 to 6 weeks unle ss surgically removed.
--- NOTE | 2024-02-01 15:13 | PM.OP ---
Operative Report Date of procedure: February 01, 2024 Pre-op diagnosis: Acute cholecystitis Post-op diagnosis: Severe acute cholecystitis, intra-abdominal adhesions Post-op findings: There were significant adhesions from the omentum to the anterior abdominal wall starting right below the falciform ligament and all the way down to the pelvis consistent with history of previous surgery. The gallbladder was completely wrapped by surrounding structures including omentum and periduodenal tissue, the gallbladder was inaccessible, despite several maneuvers and attempted dissection of the pericholecystic inflammatory phlegmon we were unable to expose the gallbladder, at this point I decided that the best option for this patient will be to proceed with cholecystostomy tube placement to prevent injury after attempting to remove the gallbladder Procedure done: diagnostic laparoscopy Surgeon: Yunior Prince MD Estimated blood loss: 10 Brief History: 68-year-old male who presented to the hospital about 3 days ago with chest pain, 24 hours ago patient started complaining of significant abdominal pain a CAT scan was done and the CAT scan showed evidence of acute cholecystitis, I was consulted for this finding. We offered the patient laparoscopic cholecystectomy. Will proceed to the OR after a complete discussion regarding risks and benefits of the operation. Procedure: Patient was brought into the OR, he was placed in a supine position. General anesthesia was given. The abdomen was prepped and draped in the usual sterile fashion. The abdomen was accessed with an Optiview trocar in the left upper quadrant. Pneumoperitoneum was obtained and no evidence of visceral injury during entry was noted. Upon immediate entry it was noted that there was severe adhesions from the omentum to the anterior abdominal wall starting in the area just below the falciform ligament and all the way down to the pelvis, this made it impossible to visualize the right upper quadrant. I decided to pull the second trocar in the left flank, this allowed me to proceed with blunt dissection and dissection with LigaSure of this adhesions to the anterior abdominal wall, I was able to take down all the adhesions from the omentum to the anterior abdominal wall at to the infraumbilical area, at this point I was able to visualize the right upper quadrant and therefore decided to stop with adhesiolysis. I placed another 5 mm trocar in the supraumbilical position. And another 5 mm trocar in the right flank all of these under direct visualization. I was not able to visualize the gallbladder wall, the gallbladder was encased in thick phlegmonous mass composed of omentum and the transverse colon mesocolon. I attempted to release this inflammatory phlegmon with blunt dissection but this was impossible as the inflammation was severe, at this point and based on current literature a bailout maneuver was indicated, my first thought was to proceed with a laparoscopic cholecystostomy tube placement bile without being able to visualize even the fundus of the gallbladder this was technically impossible at this point, therefore I decided to call her colleagues interventional radiologist to talk about the possibility of doing cholecystectomy tube placement in the immediate postoperative period, they were agreeable with the plan. I then proceeded to scrub out of the operation to talk to the family member, I explained the situation to the family member and explained that patient will require cholecystostomy tube placement to relieve the pressure inside of the gallbladder as the gallbladder is inaccessible at this time during laparoscopy due to severe inflammation. Explained to the family member that if I continue with dissection there is a very high risk of injury to the surrounding structures and biliary tree as well a significant possibility of morbidity. After discussion with family member they agree with terminating the operation at this time and proceed with cholecystectomy tube placement. I then returned to the OR, did a final diagnostic laparoscopy no evidence of visceral injury was noted, I then proceeded to remove all trocars, local anesthesia was infiltrated and the wounds were closed in layers with 4 Monocryl for the skin and Dermabond was applied. At the end of the procedure all counts were correct, the patient tolerated well the procedure was transferred to PACU in stable condition. Patient will remain in PACU for cholecystostomy tube placement.
--- NOTE | 2024-02-01 15:26 | PC.SOCIAL ---
IMM updated IMM dated and initialed, copy given to patient and copy placed in chart.
--- NOTE | 2024-02-01 16:35 | ANE.PACU2 ---
Inpatient post-anesthesia follow up: Airway intact: Yes Vital signs: Temperature 97.6 F Pulse Rate 69 Respiratory Rate 18 Blood Pressure 110/67 Pulse Oximetry 92 Oxygen Delivery Me thod [ Nasal Cannula Current Rate & Del sheri] Oxygen Delivery Me thod Room Air Oxygen Flow Rate [ Current Rate 2 & Delivery] Oxygen Flow Rate 3 Fraction of Inspir ed Oxygen Hydration adequate: Yes Nausea and vomiting: No Pain level: 1 Mental status: Baseline
--- NOTE | 2024-02-01 16:54 | SUR.PHASEI ---
Per Dr. Prince's order, consented to drain placement by Dr. Rodriguez during phase [address] Jackson and Randee Ricci CRNA were present and monitored pt during procedure [id number]. See anesthesia documentation. Informed AMADA Bernard of Dr. Rodriguez's order to flush drain with 10cc NS q 8 hours beginning upon return to [facility]. Serosanguinous output in drain. CARBON FURNACE OPERATOR and pt's at bedside on [facility].
[2024-02-01] MEDS: diazePAM 5 mg Tablet PO (21:02)
[2024-02-01] MEDS: HYDROcodone-acetaminophen 5-325 mg Tablet 1 TAB PO (21:02)
[2024-02-02] VITALS (9 sets, daily range): BP systolic 108–135; BP diastolic 54–84; PULSE 66–78; RESP 16–18; TEMP 36.2–36.8; O2SAT 91–93
[2024-02-02] MEDS: pantoprazole 40 mg SDV IVP ×2 (01:46→12:23)
[2024-02-02] MEDS: piperacillin-tazobactam 3.375 GM in sodium chloride 0.9% (plus) 50 ML IV ×2 (01:47→11:12)
[2024-02-02] MEDS: sodium chloride 0.9% 1,000 ML 150 ML IV ×2 (03:12→11:11)
[2024-02-02] MEDS: ketorolac 30 mg/mL INJ 15 MG IVP ×2 (06:28→12:23)
[2024-02-02] MEDS: HYDROcodone-acetaminophen 5-325 mg Tablet 1 TAB PO (06:29)
[2024-02-02 06:30] LABS: Basophils % 0.1 %; Hematocrit 39.1 % (37-53); Lymphocytes # 0.4 10^3/uL (0.8-4.8); Lymphocytes % 3.7 %; Mean Corpuscular HGB Conc 32.5 g/dL (30-55); Mean Corpuscular Hemoglobin 31.3 pg (27-33); Mean Corpuscular Volume 96.3 fl (82-101); Mean Platelet Volume 9.9 fL (7.4-10.4); Monocytes # 0.8 10^3/uL (0.2-0.9); Monocytes % 7.6 %; Neutrophils # 9.79 10^3/uL (1.8-7.7); Neutrophils % 88.2 %; Nucleated Red Blood Cells % 0 %; Platelet Count 286 10^3/cmm (157-399); Red Blood Count 4.06 10^6/uL (3.85-5.65); Red Cell Distribution Width 12.8 % (12.1-15.1); White Blood Count 11.09 10^3/uL (3.29-11.43)
[2024-02-02 06:54] LABS: Anion Gap 13.4 (5-19); Blood Urea Nitrogen 25 mg/dL (8-23); Calcium 8.9 mg/dL (8.5-10.5); Carbon Dioxide 25 mmol/L (22-29); Chloride 104 mmol/L (98-107); Glomerular Filtration Rate 96.1 mL/min (90-130); Glucose 141 mg/dL (65-115); Magnesium 2.4 mg/dL (1.7-2.3); Osmolality Calculated 293 mOsm/kg (285-295); Potassium 4.4 mmol/L (3.5-5.1); Sodium 138 mmol/L (136-145)
[2024-02-02 06:57] LABS: Alanine Aminotransferase 36 U/L (0-41); Albumin Level 3.3 g/dL (3.5-5.2); Alkaline Phosphatase 154 U/L (40-130); Aspartate Amino Transferase 19 U/L (0-40); Globulin 2.4 g/dL (1.3-4.6); Total Protein 5.7 g/dL (6.6-8.7)
[2024-02-02] MEDS: atorvastatin 40 mg Tablet PO (09:17)
[2024-02-02] MEDS: potassium chloride ER 20 mEq Tablet PO (09:18)
[2024-02-02] MEDS: levothyroxine 25 mcg Tablet PO (09:18)
[2024-02-02] MEDS: morphine 4 mg/mL SDV 1 mL 2 MG IVP (09:24)
--- NOTE | 2024-02-02 10:32 | P.PN_ITS ---
Subjective 2 Subjective: Patient is postoperative day 1 status post diagnostic laparoscopy with findings of a severe acute cholecystitis Rhys grade 4, is also postoperative day 1 status post cholecystostomy tube placement. Doing well overnight pain has been better controlled, no significant abdominal pain at this time he is passing gas. Vitals/I&O/Wt Last Vital Signs Temp 97.4 F L 02/02/24 07:57 Pulse 68 02/02/24 07:57 Resp 18 02/02/24 09:24 BP 135/84 02/02/24 07:57 Pulse Ox 91 02/02/24 07:57 O2 Del Method Room Air 02/02/24 07:57 O2 Flow Rate 3 02/01/24 16:35 02/01/24 02/02/24 02/02/24 22:59 06:59 14:59 Intake Total 2050 / 2445 967.5 / 3412.5 1410 / 1410 Output Total 255 / 255 250 / 505 Balance 1795 / 2190 717.5 / 2907.5 1410 / 1410 Weight last 48 hrs Weight 200 lb Weight 200 lb Weight 216 lb Physical Exam 2 GI: OTHER: Abdominal exam is benign abdomen soft and nontender, I can no longer feel a mass in the right upper quadrant as yesterday, the cholecystostomy tube is in place and is putting out significant amount of bile. Data 02/02/24 05:48 02/02/24 05:48 Micro: Microbiology 01/31/24 04:44 Blood Culture - Preliminary Blood NEGATIVE TO DATE 01/31/24 04:40 Blood Culture - Preliminary Blood NEGATIVE TO DATE A&P Assessment and plan (1) Abdominal pain: (2) Acute cholecystitis: Plan Patient showing very good progression after gastrostomy tube placement for acute cholecystitis, white count is normal today, the LFTs have improved, direct bilirubin has normalized. He is tolerating diet, we will advance him to a GI soft diet. I had a stent discussion with the patient and family member I have explained that in the next 2 to 3 weeks we will plan to do a cholangiogram through the catheter to evaluate if there is patency of the cystic duct, if there is patency of the cystic duct the plan will be to remove the catheter and then plan for elective cholecystectomy by advanced hepatobiliary surgeon, in the case of persistent obstruction of the cystic dog he will also require cholecystectomy but we will keep the drain in until he is able to get his cholecystectomy. He will require 2 weeks of p.o. antibiotics after discharge, from my standpoint if he is tolerating diet today he will be okay to transition to the outpatient setting. Warning signs regarding how to manage his catheter were given, patient has been taught how to flush the drain by nursing staff and by myself. Attestations 2 Medical Necessity Statement*: Per medical team Coding Level of Care Code Acute Code for [facility] Diagnoses Abdominal pain R10.9 Acute cholecystitis K81.0
[2024-02-02] MEDS: oxyCODONE 5 mg IR Tab/Cap 10 MG PO (11:11)
--- NOTE | 2024-02-02 12:39 | P.PN_ITS ---
Subjective 2 Subjective: Seen today. 250 cc output through cholecystostomy drain. Patient subjectively feels better. Tolerating full liquids. Vitals/I&O/Wt Last Vital Signs Temp 97.2 F L 02/02/24 12:00 Pulse 66 02/02/24 12:00 Resp 17 02/02/24 12:00 BP 118/64 02/02/24 12:00 Pulse Ox 93 02/02/24 12:00 O2 Del Method Room Air 02/02/24 12:00 O2 Flow Rate 3 02/01/24 16:35 02/01/24 02/02/24 02/02/24 22:59 06:59 14:59 Intake Total 2050 / 2445 967.5 / 3412.5 1770 / 1770 Output Total 255 / 255 250 / 505 80 / 80 Balance 1795 / 2190 717.5 / 2907.5 1690 / 1690 Weight last 48 hrs Weight 90.718 kg Weight 90.718 kg Weight 97.976 kg Physical Exam 2 Narrative: No acute distress, sitting up in bed appearing comfortable at this time. Chest clear to auscultation bilaterally Cardiovascular normal heart sounds no murmurs Abdomen soft nontender, bowel sounds present. Extremities no edema noted bilateral lower extremity Data 02/02/24 05:48 02/02/24 05:48 A&P Assessment and plan (1) Accelerated hypertension: (2) Atypical chest pain: (3) GERD (gastroesophageal reflux disease): (4) Anxiety: (5) Hyperlipidemia: Qualifiers: Hyperlipidemia type: mixed hyperlipidemia Qualified Code(s): E78.2 - Mixed hyperlipidemia (6) Hypothyroidism: Qualifiers: Hypothyroidism type: acquired Qualified Code(s): E03.9 - Hypothyroidism, unspecified (7) Hypertension: Qualifiers: Hypertension type: primary hypertension Qualified Code(s): I10 - Essential (primary) hypertension (8) Acute cholecystitis: Plan Garry Corley is a 68 year old male with Hx of HTN, HLD, hypothyroidism, Chronic low back pain, anxiety, GERD, erectile dysfunction presented with complaint of midsternal chest pain since yesterday afternoon. As per the patient he started having nausea following lunch yesterday which was followed by severe midsternal chest pain that persisted until he came to ER. #Chest pain-likely secondary to gastritis/GERD Will rule out ACS 3 sets of troponins 9, 6, 6 Most recent EKG normal sinus rhythm at [address], [address]-T changes Continue cardiac monitoring Will do pain control with IV morphine 2 mg every 4 hours as needed for severe pain and p.o. Ennis 5/325 mg every 4 hours as needed for mild to moderate pain P.o. Maalox 30 mL every 6 hours IV Protonix 40 mg twice daily Chest x-ray negative for any acute findings CTA chest negative for acute findings, no dissection or aneurysm seen CT abdomen pelvis showed 1. Cholelithiasis with a slightly hydropic gallbladder. There is no adjacent inflammation or wall thickening. Normal common bile duct. 2. No renal obstruction. Mild bilateral perinephric stranding may be chronic. 3. Distal colonic diverticulosis without acute diverticulitis. 4. Atherosclerosis aorta. 5. Normal appendix. # Hypertensive urgency-likely secondary to pain Had blood pressure of 180/106 Started on Cardene drip in ER, current blood pressure in 150s Will continue Cardene drip for now Continue ACUTE CARE CLINICAL NURSE SPECIALIST lisinopril and Lasix # Hyperlipidemia-continue ACUTE CARE CLINICAL NURSE SPECIALIST atorvastatin #Hypothyroidism-continue ACUTE CARE CLINICAL NURSE SPECIALIST levothyroxine #Low back pain-continue ACUTE CARE CLINICAL NURSE SPECIALIST duloxetine, diazepam, gabapentin. DVT prophylaxis with subcutaneous heparin GI prophylaxis, already started on IV Protonix CODE STATUS discussed with patient and at bedside, he is full code for now 01/30/24 Chest pain and now abdominal pain with gaseous distention likely secondary to gastritis versus GERD. Will continue current management. Will give Dulcolax and MiraLAX for constipation. Monitor for today. Anticipating discharge in a.m. blood pressure controlled. Has been off Cardene drip since yesterday morning. 2D echo was normal and showed LV systolic function is normal with EF of 55-60% Grade 1 diastolic dysfunction Trace mitral regurgitation Mild tricuspid regurgitation Ascending aorta is dilated with diameter of 3.74cm. No comparison studies are available. 01/31/24 He is still complaining of right lower quadrant abdominal pain associated with diarrhea, poor p.o. intake. CT abdomen pelvis with and without contrast showed IMPRESSION: 1. Findings as stated above are consistent with acute cholecystitis with associated cholelithiasis. 2. Bibasilar consolidation may represent prominent atelectatic change or pneumonia. Will start on IV Zosyn 3.375 mg every 8 hours. Surgery consulted. Will keep n.p.o. for now. He is having soft blood pressure likely secondary to diarrhea, will start on IV fluids normal saline at 75 cc/h and hold home medication lisinopril for now. He is going to be transferred to medical floor for further management. 02/02/2024 -Patient underwent cholecystostomy tube yesterday. That is to remain in place for 4 to 6 weeks. Patient to follow-up with general surgery as an outpatient in 2 weeks time. ? Plan to send home on Augmentin 875 twice daily x 14 days. ? Currently on full liquid diet. Will transition to GI soft diet later today. If continues to tolerate patient will be discharged home later today. If he does end up going home today this document to serve as a discharge summary. ? Attestations 2 Medical Necessity Statement*: Plan to discharge home today if remains stable. Diagnoses Accelerated hypertension I10 Atypical chest pain R07.89 GERD (gastroesophageal reflux disease) K21.9 Anxiety F41.9 Mixed hyperlipidemia E78.2 Hyperlipidemia type: mixed hyperlipidemia Acquired hypothyroidism E03.9 Hypothyroidism type: acquired Primary hypertension I10 Hypertension type: primary hypertension Acute cholecystitis K81.0
--- NOTE | 2024-02-03 16:33 | PM.DCS ---
Discharge Providers Date of Admission: 01/30/24 13:56 Date of Discharge: February 04, 2024 Attending Provider at Admission: Maribell Osborn MD Attending Provider at Discharge: Marcia Carrington MD Primary Care Provider: Hiren Holloway MD Diagnoses at Discharge Discharge Diagnosis (1) Accelerated hypertension: Status: Acute (2) Atypical chest pain: Status: Resolved (3) GERD (gastroesophageal reflux disease): Status: Acute (4) Anxiety: Status: Acute (5) Hyperlipidemia: Status: Acute Qualifiers: Hyperlipidemia type: mixed hyperlipidemia Qualified Code(s): E78.2 - Mixed hyperlipidemia (6) Hypothyroidism: Status: Acute Qualifiers: Hypothyroidism type: acquired Qualified Code(s): E03.9 - Hypothyroidism, unspecified (7) Hypertension: Status: Acute Qualifiers: Hypertension type: primary hypertension Qualified Code(s): I10 - Essential (primary) hypertension (8) Acute cholecystitis: Status: Resolved Reason for Visit Reason for Visit: chest pain Hospital Course Hospital Course Garry Corley is a 68 year old male with Hx of HTN, HLD, hypothyroidism, Chronic low back pain, anxiety, GERD, erectile dysfunction presented with complaint of midsternal chest pain since yesterday afternoon. As per the patient he started having nausea following lunch yesterday which was followed by severe midsternal chest pain that persisted until he came to ER. #Chest pain-likely secondary to gastritis/GERD Will rule out ACS 3 sets of troponins 9, 6, 6 Most recent EKG normal sinus rhythm at [address], [address]-T changes Continue cardiac monitoring Will do pain control with IV morphine 2 mg every 4 hours as needed for severe pain and p.o. [place] 5/325 mg every 4 hours as needed for mild to moderate pain P.o. Maalox 30 mL every 6 hours IV Protonix 40 mg twice daily Chest x-ray negative for any acute findings CTA chest negative for acute findings, no dissection or aneurysm seen CT abdomen pelvis showed 1. Cholelithiasis with a slightly hydropic gallbladder. There is no adjacent inflammation or wall thickening. Normal common bile duct. 2. No renal obstruction. Mild bilateral perinephric stranding may be chronic. 3. Distal colonic diverticulosis without acute diverticulitis. 4. Atherosclerosis aorta. 5. Normal appendix. # Hypertensive urgency-likely secondary to pain Had blood pressure of 180/106 Started on Cardene drip in ER, current blood pressure in 150s Will continue Cardene drip for now Continue [employer] lisinopril and Lasix # Hyperlipidemia-continue [employer] atorvastatin #Hypothyroidism-continue [employer] levothyroxine #Low back pain-continue [employer] duloxetine, diazepam, gabapentin. DVT prophylaxis with subcutaneous heparin GI prophylaxis, already started on IV Protonix CODE STATUS discussed with patient and at bedside, he is full code for now 01/30/24 Chest pain and now abdominal pain with gaseous distention likely secondary to gastritis versus GERD. Will continue current management. Will give Dulcolax and MiraLAX for constipation. Monitor for today. Anticipating discharge in a.m. blood pressure controlled. Has been off Cardene drip since yesterday morning. 2D echo was normal and showed LV systolic function is normal with EF of 55-60% Grade 1 diastolic dysfunction Trace mitral regurgitation Mild tricuspid regurgitation Ascending aorta is dilated with diameter of 3.74cm. No comparison studies are available. 01/31/24 He is still complaining of right lower quadrant abdominal pain associated with diarrhea, poor p.o. intake. CT abdomen pelvis with and without contrast showed IMPRESSION: 1. Findings as stated above are consistent with acute cholecystitis with associated cholelithiasis. 2. Bibasilar consolidation may represent prominent atelectatic change or pneumonia. Will start on IV Zosyn 3.375 mg every 8 hours. Surgery consulted. Will keep n.p.o. for now. He is having soft blood pressure likely secondary to diarrhea, will start on IV fluids normal saline at 75 cc/h and hold home medication lisinopril for now. He is going to be transferred to medical floor for further management. 02/02/2024 -Patient underwent cholecystostomy tube yesterday. That is to remain in place for 4 to 6 weeks. Patient to follow-up with general surgery as an outpatient in 2 weeks time. ? Plan to send home on Augmentin 875 twice daily x 14 days. ? Currently on full liquid diet. Will transition to GI soft diet later today. If continues to tolerate patient will be discharged home later today. If he does end up going home today this document to serve as a discharge summary. ? Physical Exam Narrative: see progress note from today Discharge Data Studies Completed and Pending Completed Studies During Hospitalization Category Date Time Status CT abdomen pelvis wo con [id number] Stat Cat Scan 01/29/24 08:[address] abdomen pelvis wo/w [id number] Stat Cat Scan 01/31/24 10:01 Completed CTA thoracic [CT angio chest [id number]] Stat Cat Scan 01/29/24 06:34 Completed XR chest 1V portable [id number] Stat Exams 01/29/24 06:03 Completed CV. echo complete* [id number] Stat Ultrasound 01/30/24 14:05 Completed US gall bladder [id number] Stat Ultrasound 02/01/24 07:15 Completed US guide cholecystostomy [id number] Stat Ultrasound 02/01/24 14:59 Completed Pending at discharge Category Date Time Status Blood Culture Stat Lab 01/31/24 04:44 Results Radiology Impressions Chest X-Ray 01/29/24 06:03 IMPRESSION: No acute findings. Chest CTA 01/29/24 06:34 IMPRESSION: 1. No acute findings. 2. No dissection or aneurysm. Abdomen/Pelvis CT 01/31/24 10:01 IMPRESSION: 1. Findings as stated above are consistent with acute cholecystitis with associated cholelithiasis. 2. Bibasilar consolidation may represent prominent atelectatic change or pneumonia. Gallbladder Ultrasound 02/01/24 07:15 IMPRESSION: 1. Normal common bile duct. 2. Ultrasound findings suggestive of acute cholecystitis. No gallbladder hydrops at this time. No intrahepatic duct dilatation. Cholecystostomy 02/01/24 14:59 IMPRESSION: 1. Uncomplicated placement of a cholecystotomy tube. 10 [place] pigtail catheter is noted coiled in the gallbladder lumen. Bowel is being aspirated. 2. This cholecystotomy tube will need to remain in place for 4 to 6 weeks unless surgically removed. Laboratory Results WBC 11.09 10^3/uL (3.29-11.43) 02/02/24 05:48 RBC 4.06 10^6/uL (3.85-5.65) 02/02/24 05:48 Hgb 12.70 g/dL (11.27-16.99) 02/02/24 05:48 Hct 39.1 % (37-53) 02/02/24 05:48 MCV 96.3 fl (82-101) 02/02/24 05:48 MCH 31.3 pg (27-33) 02/02/24 05:48 MCHC 32.5 g/dL (30-55) 02/02/24 05:48 RDW 12.8 % (12.1-15.1) 02/02/24 05:48 Plt Count 286 10^3/cmm (157-399) 02/02/24 05:48 MPV 9.9 fL (7.4-10.4) 02/02/24 05:48 Neut % (Auto) 88.2 % 02/02/24 05:48 Lymph % (Auto) 3.7 % 02/02/24 05:48 [place] % (Auto) 7.6 % 02/02/24 05:48 Eos % (Auto) 0.0 % 02/02/24 05:48 Baso % (Auto) 0.1 % 02/02/24 05:48 Neut # (Auto) 9.79 10^3/uL (1.8-7.7) H 02/02/24 05:48 Lymph # (Auto) 0.4 10^3/uL (0.8-4.8) L 02/02/24 05:48 [place] # (Auto) 0.8 10^3/uL (0.2-0.9) 02/02/24 05:48 Eos # (Auto) 0.0 10^3/uL (0.0-0.8) 02/02/24 05:48 Baso # (Auto) 0.0 10^3/uL (0.0-0.1) 02/02/24 05:48 Nucleated RBC % (auto) 0 % 02/02/24 05:48 Nucleated RBCs # 0.0 /100WBC 02/02/24 05:48 Sodium 138 mmol/L (136-145) 02/02/24 05:48 Potassium 4.4 mmol/L (3.5-5.1) 02/02/24 05:48 Chloride 104 mmol/L (98-107) 02/02/24 05:48 Carbon Dioxide 25 mmol/L (22-29) 02/02/24 05:48 Anion Gap 13.4 (5-19) 02/02/24 05:48 BUN 25 mg/dL (8-23) H 02/02/24 05:48 Creatinine 0.8 mg/dL (0.7-1.2) 02/02/24 05:48 GFR Calculation 96.1 mL/min (90-130) 02/02/24 05:48 Glucose 141 mg/dL (65-115) H 02/02/24 05:48 Calculated Osmolality 293 mOsm/kg (285-295) 02/02/24 05:48 Lactic Acid 2.5 mmol/L (0.5-2.2) H 01/29/24 05:52 Lactic Acid (Sepsis) 1.6 mmol/L (0.5-2.2) 01/29/24 09:15 Lactate 1.3 mmol/L (0.5-2.2) 01/31/24 04:44 Calcium 8.9 mg/dL (8.5-10.5) 02/02/24 05:48 Magnesium 2.4 mg/dL (1.7-2.3) H 02/02/24 05:48 Total Bilirubin 1.0 mg/dL (0.15-1.2) 02/02/24 05:48 Direct Bilirubin 0.70 mg/dL (0.00-0.30) H 02/02/24 05:48 AST 19 U/L (0-40) 02/02/24 05:48 ALT 36 U/L (0-41) 02/02/24 05:48 Alkaline Phosphatase 154 U/L (40-130) H 02/02/24 05:48 Troponin T Baseline 9 ng/L (0-15) 01/29/24 05:52 Troponin T 120 Minute 6.00 ng/L (0-15) 01/29/24 08:22 Delta Troponin T -3.00 ABS# (0-10) L 01/29/24 08:22 Troponin T Hi Sens 6Hr 6.00 ng/L (0-15) 01/29/24 12:20 Troponin T Hi Sens 6Hr Delta -3.00 ng/L (0-12) L 01/29/24 12:20 Total Protein 5.7 g/dL (6.6-8.7) L 02/02/24 05:48 Albumin 3.3 g/dL (3.5-5.2) L 02/02/24 05:48 Globulin 2.4 g/dL (1.3-4.6) 02/02/24 05:48 Lipase 9 U/L (13-60) L 01/31/24 04:44 Urine Color Dark yellow (Yellow) A 01/29/24 06:19 Urine Appearance Clear (CLEAR) 01/29/24 06:19 Urine pH 5.5 (5-7) 01/29/24 06:19 Ur Specific [place] 1.035 (1.005-1.030) H 01/29/24 06:19 Urine Protein Trace (Negative) A 01/29/24 06:19 Urine Glucose (UA) Negative (Normal) 01/29/24 06:19 Urine Ketones Negative (Negative) 01/29/24 06:19 Urine Blood Negative (Negative) 01/29/24 06:19 Urine Nitrate Negative (Negative) 01/29/24 06:19 Urine Bilirubin Negative (Negative) 01/29/24 06:19 Urine Urobilinogen 1.0 mg/dL (Negative) 01/29/24 06:19 Ur Leukocyte Esterase Negative (Negative) 01/29/24 06:19 Urine RBC 3-5 /hpf (0-2) 01/29/24 06:19 Urine WBC 0-5 /hpf (0-5) 01/29/24 06:19 Ur Squamous Epith Cells 0-5 /hpf (0-5) 01/29/24 06:19 Amorphous Sediment Not Reportable 01/29/24 06:19 Urine Bacteria None seen /hpf (NONE) 01/29/24 06:19 Hyaline Casts 5.36 /lpf 01/29/24 06:19 Adenovirus (PCR) Not detected (NOT DETECT) 01/31/24 02:30 C. pneumoniae DNA (PCR) Not detected (NOT DETECT) 01/31/24 02:30 Coronavirus 229E (PCR) Not detected (NOT DETECT) 01/31/24 02:30 Human Metapneumovir PCR Not detected (NOT DETECT) 01/31/24 02:30 Influenza A (H1) PCR Not detected (NOT DETECT) 01/31/24 02:30 Influ A (H1/09) PCR Not detected (NOT DETECT) 01/31/24 02:30 Influenza A (H3) PCR Not detected (NOT DETECT) 01/31/24 02:30 Influenza Type A (PCR) Not detected (NOT DETECT) 01/31/24 02:30 Influenza Type B (PCR) Not detected (NOT DETECT) 01/31/24 02:30 M. pneumoniae (PCR) Not detected (NOT DETECT) 01/31/24 02:30 Parainfluenza 1 (PCR) Not detected (NOT DETECT) 01/31/24 02:30 Parainfluenza 2 (PCR) Not detected (NOT DETECT) 01/31/24 02:30 Parainfluenza 3 (PCR) Not detected (NOT DETECT) 01/31/24 02:30 Parainfluenza 4 (PCR) Not detected (NOT DETECT) 01/31/24 02:30 RSV Type A (PCR) Not detected (NOT DETECT) 01/31/24 02:30 RSV Type B (PCR) Not detected (NOT DETECT) 01/31/24 02:30 Entero/Rhino (PCR) Not detected (NOT DETECT) 01/31/24 02:30 SARS-CoV-2 (PCR) Not detected (NOT DETECT) 01/31/24 02:30 Blood Type A Positive 01/29/24 06:52 Rho(D) Type Rh positive 01/29/24 06:52 Antibody Screen Positive 01/29/24 06:52 Antibody Identification Anti-K 01/29/24 06:52 Antigen Identification K Antigen - NEGATIVE 01/29/24 06:52 Crossmatch See Detail 01/29/24 06:52 Vitals Last Vital Signs Temp 97.6 F 02/02/24 17:18 Pulse 69 02/02/24 17:18 Resp 18 02/02/24 17:18 BP 110/67 02/02/24 17:18 Pulse Ox 92 02/02/24 17:18 O2 Del Method Room Air 02/02/24 15:39 O2 Flow Rate 3 02/01/24 16:35 Discharge Plan Discharge Patient Disposition: Home Condition: Stable Prescriptions: New amoxicillin-pot clavulanate 875-125 mg tablet 1 tab PO BID 14 Days Qty: 28 0RF Continued naloxone [Narcan] 4 mg/actuation spray,non-aerosol 4 mg intranasal Q3M PRN (Reason: opioid overdose) Qty: 2 0RF Rx Instructions: spray 1 dose into ONE nostril; alternate nostrils w each dose until help arrives potassium chloride 20 mEq tablet extended release 20 meq PO DAILY Qty: 30 0RF atorvastatin 40 mg tablet 40 mg PO DAILY Qty: 90 1RF diazepam 5 mg tablet 5 mg PO BID PRN (Reason: anxiety) Qty: 60 0RF levothyroxine 25 mcg capsule 25 mcg PO DAILY Qty: 90 1RF lisinopril 40 mg tablet 40 mg PO DAILY Qty: 90 1RF omeprazole 20 mg capsule,delayed release(DR/EC) 20 mg PO DAILY Qty: 90 1RF oxycodone 10 mg tablet 10 mg PO Q4H PRN (Reason: lower back pain) 3 Days Qty: 10 0RF Held sildenafil 100 mg tablet 100 mg PO DAILY PRN (Reason: sexual activity) Qty: 30 1RF Hold Instructions: see pcp Rx Instructions: administer 30 minutes to 4 hours before activity Discharge Orders: Discharge Order (Routine); Ordered 02/02/24 Ordered By: Marcia Carrington Referrals: Yunior Prince MD [Physician] - 2 weeks (2 weeks We have notified your physician's clinic of the need for a follow-up appointment to be scheduled. If you have not heard from them within the next 2 business days, please call them directly. ) Hiren Holloway MD [Primary Care Provider] - 4-7 days (We have notified your physician's clinic of the need for a follow-up appointment to be scheduled. If you have not heard from them within the next 2 business days, please call them directly. ) Discharge Diet: GI Soft Discharge Activity: Limit activity as instructed Patient Instructions: Amoxicillin/Clavulanate Potassium (By mouth), Cholecystitis (GEN), Acute Wound Care (DC), Opioid Safety, Post Anesthesia Care Discharge Attestations Time Spent in Discharge Care*: greater than 30 min Quality Metrics Clinical Quality Measures [ No reported AMI, CVA or VTE this stay] Coding Level of Care Code Acute Code for Chg Fwd Diagnoses Accelerated hypertension I10 Atypical chest pain R07.89 GERD (gastroesophageal reflux disease) K21.9 Anxiety F41.9 Mixed hyperlipidemia E78.2 Hyperlipidemia type: mixed hyperlipidemia Acquired hypothyroidism E03.9 Hypothyroidism type: acquired Primary hypertension I10 Hypertension type: primary hypertension Acute cholecystitis K81.0
== END 2024-02-02 17:21 | disposition home or self-care (01) | DRG 422 ==
LOC: ER 05:48 → CSU 09:17 → MEDSURG 01-31 16:48
PROVIDERS: Emergency Medicine; Student in an Organized Health Care Education/Training Program; Surgery; Admitting Provider Internal Medicine; Emergency Provider Family Medicine; PCP Family Medicine; Visit Provider Internal Medicine
PROC: 0FJ44ZZ Inspection of Gallbladder, Percutaneous Endoscopic Approach (ICD-10-PCS; CPT 49320; principal; 2024-02-01 13:00)
PROC: 0FJ44ZZ Inspection of Gallbladder, Percutaneous Endoscopic Approach (ICD-10-PCS; 2024-02-01 13:00)
DX: K81.0 Acute cholecystitis (principal); I10 Essential (primary) hypertension; K21.9 Gastro-esophageal reflux disease without esophagitis; F41.9 Anxiety disorder, unspecified; E78.5 Hyperlipidemia, unspecified; E03.9 Hypothyroidism, unspecified; G89.29 Other chronic pain; M54.50 Low back pain, unspecified; Z87.891 Personal history of nicotine dependence; Z98.890 Other specified postprocedural states
CPT/HCPCS: 36415; 36569; 47490; 71045; 71275; 74176; 74178; 76705; 80048; 80053; 80076; 80503; 81001; 83605; 83690; 83735; 84484; 85025; 86850; 86870; 86900; 86902; 86920; 87040; 87486; 87581; 87633; 93005; 93306; 94664; 96372; 96374; 96375; 96376; 99285; A9270; C1751; G0378; J1100; J1171; J1644; J1885; J2270; J2405; J2470; J2543; J2704; J2765; J3010; J3490; J7030

== ENCOUNTER → 2024-02-08 13:38 | Outpatient (BNVA) | payer MEDICARE, SELFPAY | PROVIDERS: PCP Family Medicine; Visit Provider Surgery | DX: T85.518A Breakdown (mechanical) of other gastrointestinal prosthetic devices, implants and grafts, initial encounter (principal); K81.0 Acute cholecystitis; X58.XXXA Exposure to other specified factors, initial encounter | CPT/HCPCS: 99024 ==

== ENCOUNTER → 2024-02-17 09:08 | Outpatient (BNVA) | payer MEDICARE, SELFPAY | PROVIDERS: PCP Family Medicine; Visit Provider Surgery | DX: Z87.19 Personal history of other diseases of the digestive system (principal) | CPT/HCPCS: 99213 ==

== ENCOUNTER → 2024-03-10 14:45 | Outpatient (BNVA) | payer MEDICARE, SELFPAY | PROVIDERS: PCP Family Medicine; Visit Provider Specialist | DX: M75.01 Adhesive capsulitis of right shoulder (principal); Z71.89 Other specified counseling | CPT/HCPCS: 20610; J1100; J2795; J3301 ==

== ENCOUNTER → 2024-05-23 12:55 | Outpatient (BNVA) | payer MEDICARE, SELFPAY | PROVIDERS: PCP Family Medicine; Visit Provider Nurse Practitioner Family | DX: L81.4 Other melanin hyperpigmentation (principal); L57.8 Other skin changes due to chronic exposure to nonionizing radiation; D22.5 Melanocytic nevi of trunk; L82.0 Inflamed seborrheic keratosis | CPT/HCPCS: 17110; 99213 ==

== ENCOUNTER → 2024-06-10 10:11 | Outpatient (BNVA) | payer MEDICARE, SELFPAY | PROVIDERS: PCP Family Medicine; Visit Provider Specialist | DX: M75.01 Adhesive capsulitis of right shoulder (principal); Z71.89 Other specified counseling | CPT/HCPCS: 20610; J1100; J2795; J3301; J9999 ==

== ENCOUNTER → 2024-09-16 09:15 | Outpatient (BNVA) | payer MEDICARE, SELFPAY | PROVIDERS: PCP Family Medicine; Visit Provider Specialist | DX: M75.01 Adhesive capsulitis of right shoulder (principal) | CPT/HCPCS: 20610; J1100; J2795; J3301; J9999 ==

== ENCOUNTER → 2024-10-17 08:55 | Outpatient (BNVA) | payer MEDICARE, SELFPAY | PROVIDERS: PCP Family Medicine; Visit Provider Specialist | DX: M18.11 Unilateral primary osteoarthritis of first carpometacarpal joint, right hand (principal) | CPT/HCPCS: 73130 ==

== ENCOUNTER 2024-10-17 11:15 | Outpatient (CLI) | payer MEDICARE, SELFPAY | END 2024-10-17 11:16 | disposition home or self-care (01) | LOC: SPT 11:16 | PROVIDERS: PCP Family Medicine; Visit Provider Specialist | DX: Z46.89 Encounter for fitting and adjustment of other specified devices (principal); M18.11 Unilateral primary osteoarthritis of first carpometacarpal joint, right hand | CPT/HCPCS: L3924 ==

== ENCOUNTER → 2024-12-23 10:15 | Outpatient (BNVA) | payer MEDICARE, SELFPAY | PROVIDERS: PCP Family Medicine; Visit Provider Specialist | DX: M75.01 Adhesive capsulitis of right shoulder (principal); M25.511 Pain in right shoulder | CPT/HCPCS: 20610; J1100; J2795; J3301; J9999 ==